=== PATIENT | male | born 1960 | race Caucasian/White ===

== ENCOUNTER 2016-05-30 17:31 | Observation (INO) | payer BC ==
[2016-05-30] MEDS ORDERED: Aspirin Low Dose CHEW TAB* 81 MG PO ONE (18:08)
[2016-05-30 18:49] LABS: Hematocrit 43 % (42-52); Hemoglobin 14.4 g/dl (14.0-18.0); Mean Corpuscular HGB Conc 34 g/dl (31-36); Mean Corpuscular Hemoglobin 32 pg (27-31); Mean Corpuscular Volume 95 fL (80-94); Mean Platelet Volume 8 um3 (7.4-10.4); Red Cell Distribution Width 13 % (10.5-15); White Blood Count 12.8 10^3/ul (3.5-10.8)
--- NOTE | 2016-05-30 18:56 | RAD ---
INDICATION: Chest pain COMPARISON: None TECHNIQUE: An AP portable view obtained at 1825 hours is submitted. FINDINGS: Bones/Soft Tissues: There are no acute bony findings. Cardiomediastinal: The cardiomediastinal silhouette is normal. Lungs: There are no infiltrates. Pleura: There are no pleural effusions. Other: None IMPRESSION: NORMAL CHEST
[2016-05-30 19:09] LABS: Troponin I 0.03 ng/mL (<0.04)
[2016-05-30 19:11] LABS: Albumin 4.3 g/dL (3.2-5.2); BUN/Creatinine Ratio 17.6 (8-20); Calcium 9.9 mg/dL (8.6-10.3); EGFR African American 110.4 (>60); EGFR Non-African American 85.9 (>60); Globulin 3.2 g/dL (2-4); Potassium 3.7 mmol/L (3.5-5.0); Total Bilirubin 0.3 mg/dL (0.2-1.0); Total Protein 7.5 g/dL (6.4-8.9)
[2016-05-30] MEDS ORDERED: Nitroglycerin TAB 0.4 MG* 0.4 MG TAB SL ONE (19:37)
[2016-05-30] MEDS: Heparin VIAL(*) 5000 UNITS/ML VIAL (FIVE THOUSAND) SUBCUT SCH (22:15)
[2016-05-31 03:22] VITALS: BP 134/80
[2016-05-31] MEDS: Heparin VIAL(*) 5000 UNITS/ML VIAL (FIVE THOUSAND) SUBCUT SCH (05:24)
--- NOTE | 2016-05-31 05:53 | HP ---
HISTORY AND PHYSICAL: DATE OF ADMISSION: 05/30/16 PRIMARY CARE PHYSICIAN: Dr. Tate Vuong. CHIEF COMPLAINT: Left arm pain. HISTORY OF PRESENT ILLNESS: The patient is a 55-year-old gentleman who said yesterday he was hitting golf balls at an indoor facility and was doing well. However, then he started feeling sweaty profoundly and he was shaking. He then drank some Gatorade and he felt better. He never had any pain, palpitations, or shortness of breath then. Today, he was lifting weights and doing circuit training at the gym and did well without any problems. However, sometime afterwards, he started feeling pain in his left arm that was from his biceps to his wrist. It did not last that long. He could not tell me how severe it was in terms of numbers. He did not have any chest pain. He had no shortness of breath, no palpitations. No nausea or vomiting. He is currently pain free. PAST MEDICAL HISTORY: Significant for obstructive sleep apnea and GERD. MEDICATIONS: Include: 1. Probiotic 1 capsule daily. 2. AcipHex 20 mg daily. ALLERGIES: He has no known drug allergies. FAMILY HISTORY: Mother at 74 of colon cancer. Father is alive, has hypertension, AFib, and diabetes. SOCIAL HISTORY: No tobacco, quit 12 years ago. Occasional alcohol, no recreational drug use. 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 He is . He has no children. His , Randee Diaz, is his healthcare proxy. REVIEW OF SYSTEMS: A 14-point review of systems was completed with the patient. All pertinent positives and negatives are in the history of present illness, otherwise is negative. PHYSICAL EXAMINATION GENERAL: Pleasant gentleman lying in bed in no acute distress. VITAL SIGNS: Temperature 98.2 degrees, heart rate 71 beats minutes, respiratory rate 20 breaths per minute, pulse ox 98%, blood pressure 150/85. HEENT: Normocephalic, atraumatic. Pupils equal, round, and reactive to light. Moist mucous membranes. NECK: Supple. No JVD, bruits palpable thyroid, or lymphadenopathy. CHEST: Clear to auscultation and percussion bilaterally. CARDIOVASCULAR: S1, S2 appreciated. Regular rate and rhythm. No murmurs, gallops, or rubs. ABDOMEN: Positive bowel sounds in all 4 quadrants. Soft, nontender, nondistended. No hepatosplenomegaly. EXTREMITIES: No cyanosis, clubbing, or edema. +2 peripheral pulses bilaterally. NEURO: Alert and oriented x3. Moves all extremities. SKIN: No rashes or abnormalities. DIAGNOSTIC STUDIES/LAB DATA: Hemoglobin 14.4, hematocrit 43, platelets 264. Sodium 137, potassium 3.7, chloride 103, CO2 24, BUN 16, glucose 109. Troponin is 0.03. Chest x-ray was interpreted by Radiology as normal chest. EKG showed normal sinus rhythm at 69 beats minute, left axis deviation, left anterior hemiblock. No acute ST-T wave changes. ASSESSMENT AND PLAN: 1. Left arm pain. The patient says not really experiencing chest pain and I thought this is anginal equivalent, but he is very concerned. He has not had a stress test. I will rule him out for a myocardial infarction with serial troponins. He just had a lipid profile obtained at his primary care doctor's office and it was probably unremarkable. This was in the last 2 weeks. If his troponins are negative, I will get a nuclear stress. If this is unremarkable, we would like him go home tomorrow. 2. Gastroesophageal reflux disease, stable. Continue PPI. 3. High blood pressure. We will monitor while here, may benefit from antihypertensive. 4. FEN. NPO after midnight. 5. DVT prophylaxis. Heparin subcu. 6. The patient is a full code. TIME SPENT: Over 75 minutes was spent on this H and P and more than 40 minutes was spent in direct onlb-po-sejo contact with the patient in evaluation, physical exam, and counseling and coordination of care. CC: Dr. Tate Vuong * [id number]/[facility] #: [id number] MARIA D
[2016-05-31] MEDS ORDERED: PROBIOTIC PRODUCT PO SCH (09:00)
[2016-05-31] MEDS ORDERED: Omeprazole CAP* 20 MG PO SCH (09:00)
--- NOTE | 2016-05-31 10:50 | RAD ---
Edited for charges. INDICATION: Chest and left upper extremity pain COMPARISON: Chest x-ray from the previous day TECHNIQUE: SPECT imaging was performed. Rest images were acquired following the intravenous injection of 10.7 millicuries of technetium 99m tetrofosmin at 0645 hours. Stress images were acquired following the intravenous administration of 25.5 millicuries of technetium 99m tetrofosmin at 0854 hours. FINDINGS: There are no defects of the stress-induced or fixed nature. The cardiac chamber size is normal. There are no wall motion abnormalities. The ejection fraction is calculated at 63% on stress imaging. IMPRESSION: No scintigraphic evidence of ischemia or infarction. ASSESSMENT: Low risk MTDD
--- NOTE | 2016-05-31 12:46 | DCNOTE ---
Patient seen this afternoon. No recurrence of pain. No SOB, feels well, anxious to leave. On exam, obese, middle-aged M, laying in bed in NAD, RRR, s1 and s2 present, no m/g/r, abd soft, NTND, BS+, no LE edema Stress test low risk. D/C home, PCP f/u
[2016-05-31] MEDS ORDERED: Lactobacillus Acidophilu (GG)* 1 CAP CAP PO SCH (13:00)
--- NOTE | 2016-06-01 04:38 | DS ---
DISCHARGE SUMMARY: DATE OF ADMISSION: 05/30/16 DATE OF DISCHARGE: 05/31/16 PRINCIPAL DISCHARGE DIAGNOSIS: Chest pain. SECONDARY DIAGNOSES: 1. Obstructive sleep apnea. 2. Gastroesophageal reflux disease. DISCHARGE MEDICATION REGIMEN: Aciphex 20 mg by mouth daily. STUDIES DONE DURING THE HOSPITALIZATION: Chest x-ray, impression: Normal chest x- ray. Nuclear cardiac stress test, impression: No scintigraphic evidence of ischemia or infarction. Asse ssment: Low risk. HPI AND HOSPITAL SUMMARY: Please see the full history and physical by Dr. Magdiel Pompa for full deta ils. Briefly, Mr. Garcia is a 55-year-old male with a past medical history as above who presented to the hospital with some left-sided arm pain and was felt that this could possibly be an anginal e quivalent. The patient was monitored and his troponins were trended, which remained negative. He h ad no events on telemetry. He underwent a nuclear cardiac stress test that was negative. His pain r esolved shortly after coming to the hospital and did not recur and it was felt this was probably mus culoskeletal due to his recent weight lifting. No medication changes will be made. The patient gerry uld follow up with his PCP as an outpatient. TIME SPENT: Total time spent on this discharge is 35 minutes. This is the summary of hospitalization, please see the full medical records for further details. [id number]/[facility] #: [id number]
--- NOTE | 2016-06-15 20:36 | ED ---
Diane Mccall Anna, scribed for Hossein Ford MD on 05/30/16 at 1820 . Upper Extremity Pain - HPI Summary HPI Summary: Patient is a 55 y/o male coming to [facility] presenting with left shoulder pain that began today when he was driving home from work. He reports that he did do some heavy lifting as part of his normal workout today. The pain radiates down his left arm. He describes the severity of the pain as 5/10. He reports similar pain yesterday that was accompanied by diaphoresis at that time. The diaphoresis was alleviated by drinking Gatorade. Yesterday he played golf at lunchtime. He went to his PCP today, who recommended he come to the ED. He reports bloodwork done by his PCP was normal. He reports feeling very thirsty and somewhat anxious. The arm pain has since resolved and is not reproducible. He reports a zing in his chest five minutes ago that lasted a second but no previous chest pain. Denies coughing, emesis, diarrhea. He has been on a low carb diet since 1.5 months ago. He takes Esphyx for GERD. Drinks socially. No FHx heart problems. - History of Current Complaint Chief Complaint: EDChestPainROMI Stated Complaint: PAIN LT SHOULDER Time Seen by Provider: 05/30/16 18:08 Hx Obtained From: Patient - Allergies/Home Medications Allergies/Adverse Reactions: Allergies Allergy/AdvReac Type Severity Reaction Status Date / Time Amoxicillin [From Augmentin] Allergy Palpitation Verified 06/03/14 10:06 s Clavulanic Acid Allergy Palpitation Verified 06/03/14 10:06 [From Augmentin] s Home Medications: Home Medications Rabeprazole (NF) [Aciphex (NF)] 20 mg PO DAILY 05/30/16 [History Confirmed 05/30] PMH/Surg Hx/FS Hx/Imm Hx Endocrine/Hematology History: Denies: Hx Diabetes, Hx Thyroid Disease Cardiovascular History: Denies: Hx Hypertension Respiratory History: Denies: Hx Asthma, Hx Chronic Obstructive Pulmonary Disease (COPD) GI History: Denies: Hx Ulcer - Surgical History Surgery Procedure, Year, and Place: appendectomy 2002 Infectious Disease History: Yes Infectious Disease History: Denies: Hx Hepatitis, Hx Human Immunodeficiency Virus (HIV), Traveled Outside the [place] in Last 30 Days - Family History Known Family History: Negative: Cardiac Disease - Social History Occupation: Employed Full-time Lives: With Family Alcohol Use: Occasionally Substance Use Type: Reports: None Review of Systems Positive: Other - thirsty Negative: Cough Negative: Abdominal Pain, Vomiting, Diarrhea, Nausea Negative: dysuria, hematuria Positive: Arthralgia, Myalgia. Negative: Edema Negative: Rash Neurological: Other - Denies dizziness Positive: Anxious All Other Systems Reviewed And Are Negative: Yes Physical Exam - Summary Physical Exam Summary: Constitutional: Well-developed, Well-nourished, Alert. (-) Distressed Skin: Warm, Dry HENT: Normocephalic; Atraumatic Eyes: Conjunctiva normal Neck: Musculoskeletal ROM normal neck. (-) JVD, (-) Stridor, (-) Tracheal deviation Cardio: Rhythm regular, rate normal, Heart sounds normal; Intact distal pulses; The pedal pulses are 2+ and symmetric. Radial pulses are 2+ and symmetric. ~(-) Murmur Pulmonary/Chest wall: Effort normal. (-) Respiratory distress, (-) Wheezes, (-) Rales Abd: Soft, (-) Tenderness, ~(-) Distension, (-) Guarding, (-) Rebound Musculoskeletal: (-) Edema Lymph: (-) Cervical adenopathy Neuro: Alert, Oriented x3 Psych: Mood and affect Normal Triage Information Reviewed: Yes Vital Signs On Initial Exam: Initial Vitals Temp Pulse Resp BP Pulse Ox 98.3 F 71 20 150/85 98 05/30/16 17:36 05/30/16 17:36 05/30/16 17:36 05/30/16 17:36 05/30/16 17:36 Vital Signs Reviewed: Yes Diagnostics - Vital Signs Vital Signs Temp Pulse Resp BP Pulse Ox 05/30/16 17:36 98.3 F 71 20 150/85 98 - Laboratory Result Diagrams: 05/30/16 18:35 05/30/16 18:35 Lab Statement: Any lab studies that have been ordered have been reviewed, and results considered in the medical decision making process. - Radiology CXR Xray Interpretation: No Acute Changes Radiology Interpretation Completed By: Radiologist - EKG 1744 Cardiac Rate: NL - 69 bpm EKG Rhythm: Sinus Rhythm Ectopy: None EKG Interpretation: No STEMI Re-Evaluation - Re-Evaluation First Eval Re-Evaluation Time: 19:25 Change: Worse Comment: Patient reports current 2/10 left arm pain. Will order Nitroglycerin. Discussed results and plan of care with patient. Patient and family agree with plan. Course/Dx - Course Assessment/Plan: Patient is a 55 y/o male coming to [facility] presenting with left shoulder pain that began today when he was driving home from work. He reports that he did do some heavy lifting as part of his normal workout today. The pain radiates down his left arm. He describes the severity of the pain as 5/10. He reports similar pain yesterday that was accompanied by diaphoresis at that time. The diaphoresis was alleviated by drinking Gatorade. Yesterday he played golf at lunchtime. He went to his PCP today, who recommended he come to the ED. He reports bloodwork done by his PCP was normal. He reports feeling very thirsty and somewhat anxious. The arm pain has since resolved and is not reproducible. He reports a zing in his chest five minutes ago that lasted a second but no previous chest pain. Denies coughing, emesis, diarrhea. He has been on a low carb diet since 1.5 months ago. He takes Esphyx for GERD. Drinks socially. No FHx heart problems. Labs reveal WBC level of 12.8. EKG reveals NSR at 69 bpm. CXR reveals no acute disease. Discussed with Quan Reagan ( hospitalist) at 192. Accepts patient for admission. - Diagnoses Provider Diagnoses: Chest pain, unspecified - Physician Notifications Discussed Care Of Patient With: Quan Reagan (hospitalist) at 1921. Accepts patient for admission. Discharge - Discharge Plan Condition: Stable Disposition: ADMITTED TO [facility] Referrals: Tate Vuong MD [Primary Care Provider] - The documentation as recorded by the Diane watt Anna accurately reflects the service I personally performed and the decisions made by , Hossein Ford MD.
== END 2016-05-31 14:45 | disposition home or self-care (01) ==
LOC: ED 17:31 → MEDTELE 19:43
PROVIDERS: ADMIT Internal Medicine; ATTEND Hospitalist
DX: R07.9 Chest pain, unspecified (principal); M79.602 Pain in left arm; G47.33 Obstructive sleep apnea (adult) (pediatric); K21.9 Gastro-esophageal reflux disease without esophagitis; R03.0 Elevated blood-pressure reading, without diagnosis of hypertension; R00.1 Bradycardia, unspecified; Z79.899 Other long term (current) drug therapy; Z88.0 Allergy status to penicillin; Z88.8 Allergy status to other drugs, medicaments and biological substances; Z87.891 Personal history of nicotine dependence; I51.7 Cardiomegaly
CPT/HCPCS: 36415; 71010; 78452; 80053; 83605; 84484; 85025; 93005; 93017; 96372; 99284; A9270-GY; A9502; G0378; J1644

== ENCOUNTER 2016-07-20 11:25 | Emergency (ER) | payer BC ==
[2016-07-20 11:40] VITALS: BP 139/72
--- NOTE | 2016-07-20 12:12 | UC ---
Truncal Trauma HPI - HPI Summary HPI Summary: patient slipped on ice landing on right side of trunk. pain with movement, no respiratory distress - History Of Current Complaint Chief Complaint: UCBackPain Stated Complaint: RIB AND BACK INJURY Time Seen by Provider: 07/20/16 12:05 Hx Obtained From: Patient Onset/Duration: Sudden Onset, Lasting Days Onset Of Pain: Immediate Severity Initially: Moderate Severity Currently: Moderate Mechanism Of Injury: Direct Blow, Fall From A Standing Position Aggravating Factor(s): Movement, Deep Breathing Alleviating factor(s): Nothing Associated Signs And Symptoms: Positive: Negative - Allergies/Home Medications Allergies/Adverse Reactions: Allergies Allergy/AdvReac Type Severity Reaction Status Date / Time Clavulanic Acid Allergy Palpitation Verified 07/20/16 11:33 [From Augmentin] s Amoxicillin [From Augmentin] AdvReac Intermediate Palpitation Verified 07/20/16 11:33 s PMH/Surg Hx/FS Hx/Imm Hx Previously Healthy: Yes Endocrine History Of: Denies: Diabetes, Thyroid Disease Cardiovascular History Of: Denies: Cardiac Disorders, Hypertension, Myocardial Infarction Respiratory History Of: Denies: COPD, Asthma GI/ History Of: Denies: Ulcer - Surgical History Surgical History: Yes Surgery Procedure, Year, and Place: appendectomy 2001 - Family History Known Family History: Negative: Cardiac Disease - Social History Alcohol Use: Occasionally Substance Use Type: None Smoking Status (MU): Former Smoker Have You Smoked in the Last Year: No - Immunization History Most Recent Influenza Vaccination: 2015 Most Recent Tetanus Shot: 04/04/13 Most Recent Pneumonia Vaccination: N/A Review of Systems Constitutional: Negative Skin: Negative Eyes: Negative ENT: Negative Respiratory: Negative Cardiovascular: Negative Gastrointestinal: Negative Genitourinary: Negative Motor: Negative Musculoskeletal: Arthralgia, Myalgia Neurological: Negative Psychological: Negative All Other Systems Reviewed And Are Negative: Yes Physical Exam Triage Information Reviewed: Yes Appearance: Well-Nourished, Ill-Appearing, Pain Distress Vital Signs: Initial Vital Signs Temp 96.8 F 07/20/16 11:33 Pulse 66 07/20/16 11:33 Resp 18 07/20/16 11:33 BP 139/72 07/20/16 11:33 Pulse Ox 98 07/20/16 11:33 Vital Signs Reviewed: Yes Eye Exam: Normal Eyes: Positive: Conjunctiva Clear ENT Exam: Normal ENT: Positive: Normal ENT inspection, Hearing grossly normal, Pharynx normal, TMs normal Dental Exam: Normal Neck exam: Normal Neck: Positive: Supple, Nontender, No Lymphadenopathy Respiratory Exam: Normal Respiratory: Positive: Chest non-tender, Lungs clear, Normal breath sounds Cardiovascular Exam: Normal Cardiovascular: Positive: RRR, No Murmur, Pulses Normal Abdominal Exam: Normal Abdomen Description: Positive: Nontender, No Organomegaly, Soft Musculoskeletal: Positive: Strength Intact, ROM Intact, Edema @ - under the inferior angle of the scapula Neurological Exam: Normal Neurological: Positive: Alert, Muscle Tone Normal Psychological Exam: Normal Skin Exam: Normal Truncal Trauma Course/Dx - Course Course Of Treatment: hx obtained, exam performed, meds reviewed, xray obtained. patient had taken motrin prior to arrival - Differential Dx/Diagnosis Differential Diagnosis/HQI/PQRI: Chest Wall Contusion, Rib Fracture, Thoracic Provider Diagnoses: rib contusion Discharge - Discharge Plan Condition: Stable Disposition: HOME Patient Education Materials: Rib Contusion (ED) Referrals: Tate Vuong MD [Primary Care Provider] - Additional Instructions: 1. Heat, rest and ibuprofen 2. Take deep breaths often throughout the day 3. If you develop a cough or become short of breath follow up wit your provider.
--- NOTE | 2016-07-20 12:33 | RAD ---
INDICATION: Fall. Right rib pain COMPARISON: Chest x-ray May 30, 2016 TECHNIQUE: Multiple views of the ribs were obtained. FINDINGS: Bones: There is no evidence of acute rib fracture. LUNGS: The lungs are clear. There is no pneumothorax. Pleural spaces: There is no evidence of hemothorax. Other: None IMPRESSION: NO ACUTE RIB FRACTURE
== END 2016-07-20 12:52 | disposition home or self-care (01) ==
LOC: UCEAST 11:25
DX: S20.211A Contusion of right front wall of thorax, initial encounter (principal); W00.0XXA Fall on same level due to ice and snow, initial encounter; Y92.9 Unspecified place or not applicable; Z88.0 Allergy status to penicillin; Z87.891 Personal history of nicotine dependence
CPT/HCPCS: 99211; G0463

== ENCOUNTER 2016-07-21 09:45 | Emergency (ER) | payer BC ==
[2016-07-21 10:02] VITALS: BP 135/93
--- NOTE | 2016-07-21 10:32 | UC ---
Truncal Trauma HPI - HPI Summary HPI Summary: SLIPPED ON ICE YESTERDAY MORNING AND LANDED DIRECTLY ON RIGHT SIDE. PAIN WITH MOVEMENT, COUGHING AND DEEP BREATHS. CAME HERE YESTERDAY FOR EVAL AND HAD NEGATIVE XRAY. LAST NIGHT HE TWISTED HIS BODY AT [employer] AND HEARD A POP. PAIN WAS MUCH WORSE AFTER THAT. HAD A HARD TIME SLEEPING LAST NIGHT. PAIN WRAPS AROUND ENTIRE RIGHT SIDE OF TRUNK. - History Of Current Complaint Chief Complaint: UCBackPain Stated Complaint: POSSIBLE BROKEN RIBS Time Seen by Provider: 07/21/16 10:06 Hx Obtained From: Patient Onset/Duration: Sudden Onset, Lasting Days - 1 DAY, Still Present Onset Of Pain: Immediate Severity Initially: Moderate Severity Currently: Severe Pain Intensity: 10 - 10/10 WHEN HE MOVES Pain Scale Used: 0-10 Numeric Mechanism Of Injury: Fall From A Standing Position Aggravating Factor(s): Movement, Deep Breathing, Cough Alleviating factor(s): Rest Associated Signs And Symptoms: Positive: Negative - Allergies/Home Medications Allergies/Adverse Reactions: Allergies Allergy/AdvReac Type Severity Reaction Status Date / Time Clavulanic Acid Allergy Palpitation Verified 07/20/16 11:33 [From Augmentin] s Amoxicillin [From Augmentin] AdvReac Intermediate Palpitation Verified 07/20/16 11:33 s PMH/Surg Hx/FS Hx/Imm Hx Endocrine History Of: Denies: Diabetes, Thyroid Disease Cardiovascular History Of: Denies: Cardiac Disorders, Hypertension, Myocardial Infarction Respiratory History Of: Denies: COPD, Asthma GI/ History Of: Reports: Gastroesophageal Reflux Denies: Ulcer - Surgical History Surgical History: Yes Surgery Procedure, Year, and Place: appendectomy 2001 - Family History Known Family History: Negative: Cardiac Disease - Social History Alcohol Use: Occasionally Substance Use Type: None Smoking Status (MU): Former Smoker Have You Smoked in the Last Year: No - Immunization History Most Recent Influenza Vaccination: 2016 Most Recent Tetanus Shot: 04/04/13 Most Recent Pneumonia Vaccination: N/A Review of Systems Constitutional: Negative Skin: Negative Respiratory: Negative Cardiovascular: Negative Gastrointestinal: Negative Musculoskeletal: Decreased ROM, Myalgia All Other Systems Reviewed And Are Negative: Yes Physical Exam Triage Information Reviewed: Yes Appearance: Well-Appearing, Well-Nourished, Pain Distress - MODERATE PAIN DISTRESS WITH MOVEMENT Vital Signs: Initial Vital Signs Temp 97.7 F 07/21/16 09:57 Pulse 68 07/21/16 09:57 Resp 16 07/21/16 09:57 BP 135/93 07/21/16 09:57 Pulse Ox 99 07/21/16 09:57 Vital Signs Reviewed: Yes Eyes: Positive: Conjunctiva Clear ENT: Positive: Hearing grossly normal Neck: Positive: Supple Respiratory: Positive: No respiratory distress, No accessory muscle use Cardiovascular: Positive: Pulses Normal Abdomen Description: Positive: Soft Musculoskeletal: Positive: No Edema, ROM Limited @ - TRUNK, Other: - TTP DIFFUSELY OVER RIGHT SIDE OF TRUNK. NO POINT TENDERNESS, BRUISING OR SWELLING Neurological: Positive: Alert Psychological: Positive: Age Appropriate Behavior Skin: Negative: rashes Truncal Trauma Course/Dx - Course Course Of Treatment: PT DECLINES REPEAT XRAY. ASKING FOR PAIN RELIEF. - Differential Dx/Diagnosis Provider Diagnoses: RIGHT RIB CONTUSION/MUSCLE STRAIN Discharge - Discharge Plan Condition: Stable Disposition: HOME Prescriptions: Cyclobenzaprine TAB* [Flexeril TAB*] 10 mg PO BID PRN #30 tab PRN Reason: Pain Hydrocodone-Acetaminophen [Lorcet 5-325 mg] 1 tab PO QID PRN #20 tab MDD 4 PRN Reason: Pain Patient Education Materials: Muscle Strain (ED), Rib Contusion (ED) Referrals: Tate Vuong MD [Primary Care Provider] - Additional Instructions: BE SURE TO GO THROUGH SLOW RANGE OF MOTION AND STRETCHING EXERCISES DAILY YOU ARE ABLE TO PREVENT STIFFENING UP AND MAKING THE DISCOMFORT WORSE. TAKE DEEP BREATHS DAILY TO KEEP YOUR LUNGS EXPANDING. SEEK FOLLOW-UP IF YOU ARE NOT IMPROVING EXPECTED.
[2016-07-21] MEDS ORDERED: Nitroglycerin TAB 0.4 MG* 0.4 MG TAB ONE (12:21)
== END 2016-07-21 10:28 | disposition home or self-care (01) ==
LOC: UCEAST 09:45
DX: S20.219A Contusion of unspecified front wall of thorax, initial encounter (principal); T14.8 Other injury of unspecified body region; W00.0XXA Fall on same level due to ice and snow, initial encounter; K21.9 Gastro-esophageal reflux disease without esophagitis; Z87.891 Personal history of nicotine dependence; Z88.3 Allergy status to other anti-infective agents
CPT/HCPCS: 99212; A9270-GY; G0463

== ENCOUNTER 2017-03-20 05:51 | Emergency (ER) | payer BC ==
[2017-03-20 06:01] VITALS: BP 172/91
[2017-03-20] MEDS ORDERED: Oxymetazoline 0.05% NASAL SPR* 15 ML BTL ONE (06:11)
[2017-03-20 06:41] LABS: Hematocrit 38 % (42-52); Hemoglobin 12.9 g/dl (14.0-18.0); Mean Corpuscular HGB Conc 35 g/dl (31-36); Mean Corpuscular Hemoglobin 32 pg (27-31); Mean Corpuscular Volume 93 fL (80-94); Mean Platelet Volume 8 um3 (7.4-10.4); Red Blood Count 4.03 10^6/ul (4.0-5.4); Red Cell Distribution Width 13 % (10.5-15); White Blood Count 13.6 10^3/ul (3.5-10.8)
--- NOTE | 2017-03-20 07:38 | ED ---
Li Mccall Alfonso, scribed for Yoni Alejandra MD on 03/20/17 at 0620 . Complex/Multi-Sys Presentation - HPI Summary HPI Summary: This patient is a 56 year old M presenting to [facility] with a chief complaint of right nare epistaxis since 0230 today. He is on an anticoagulant pill and ASA s/ p a recent stent placement. The patient rates the pain 0/10 in severity. Symptoms aggravated by nothing. Symptoms alleviated by nothing. Patient denies post nasal drip. - History Of Current Complaint Chief Complaint: EDEpistaxis Time Seen by Provider: 03/20/17 06:04 Hx Obtained From: Patient Onset/Duration: Sudden Onset, Lasting Hours, Still Present Timing: Constant Aggravating Factor(s): nothing Alleviating Factor(s): nothing Associated Signs And Symptoms: Positive: Other - Patient denies post nasal drip. - Allergies/Home Medications Allergies/Adverse Reactions: Allergies Allergy/AdvReac Type Severity Reaction Status Date / Time Clavulanic Acid Allergy Palpitation Verified 07/20/16 11:33 [From Augmentin] s Amoxicillin [From Augmentin] AdvReac Intermediate Palpitation Verified 07/20/16 11:33 s PMH/Surg Hx/FS Hx/Imm Hx Endocrine/Hematology History: Denies: Hx Diabetes, Hx Thyroid Disease Cardiovascular History: Reports: Hx Angina Denies: Hx Coronary Artery Disease, Hx Hypercholesterolemia, Hx Hypertension , Hx Myocardial Infarction, Hx Valvular Heart Disease Respiratory History: Reports: Hx Sleep Apnea - uses CPAP @ night @ home Denies: Hx Asthma, Hx Chronic Obstructive Pulmonary Disease (COPD) GI History: Denies: Hx Ulcer Sensory History: Reports: Hx Cataracts Opthamlomology History: Reports: Hx Cataracts EENT History: Denies: Hx Deafness Psychiatric History: Reports: Hx Panic Disorder - Surgical History Surgery Procedure, Year, and Place: appendectomy 2001 - Immunization History Date of Tetanus Vaccine: utd Date of Influenza Vaccine: fall 2015 Infectious Disease History: No Infectious Disease History: Denies: Hx Clostridium Difficile, Hx Hepatitis, Hx Human Immunodeficiency Virus (HIV), Hx of Known/Suspected MRSA, Hx Shingles, Hx Tuberculosis, Hx Known/ Suspected VRE, Hx Known/Suspected VRSA, History Other Infectious Disease, Traveled Outside the [place] in Last 30 Days - Family History Known Family History: Negative: Cardiac Disease - Social History Alcohol Use: Occasionally Hx Substance Use: No Substance Use Type: Reports: None Hx Tobacco Use: Yes Smoking Status (MU): Former Smoker Have You Smoked in the Last Year: No Review of Systems Negative: Fever Positive: Epistaxis - R, Other - Negative post nasal drip. All Other Systems Reviewed And Are Negative: Yes Physical Exam - Summary Physical Exam Summary: Appearance: Well-appearing, Well-nourished Skin: Warm Eyes: Normal ENT: Right nare epistaxis Neck: Supple, nontender Respiratory: Clear to auscultation Cardiovascular: Normal Abdomen: Soft, nontender Bowel: Present Musculoskeletal: Normal, Strength/ROM Intact Neurological: Normal, A&Ox3 Psychiatric: Normal Triage Information Reviewed: Yes Vital Signs On Initial Exam: Initial Vitals Temp Pulse Resp BP Pulse Ox 96 F 72 18 172/91 98 03/20/17 05:54 03/20/17 05:54 03/20/17 05:54 03/20/17 05:54 03/20/17 05:54 Vital Signs Reviewed: Yes - [place] Coma Scale Coma Scale Total: 15 Diagnostics - Vital Signs Vital Signs Temp Pulse Resp BP Pulse Ox 03/20/17 05:54 96 F 72 18 172/91 98 - Laboratory Lab Results: Lab Results 03/20/17 03/20/17 Range/Units 06:21 06:21 WBC 13.6 H (3.5-10.8) 10^3/ul RBC 4.03 (4.0-5.4) 10^6/ul Hgb 12.9 L (14.0-18.0) g/dl Hct 38 L (42-52) % MCV 93 (80-94) fL MCH 32 H (27-31) pg MCHC 35 (31-36) g/dl RDW 13 (10.5-15) % Plt Count 248 (150-450) 10^3/ul MPV 8 (7.4-10.4) um3 Neut % (Auto) 77.4 (38-83) % Lymph % (Auto) 15.4 L (25-47) % [place] % (Auto) 5.0 (1-9) % Eos % (Auto) 1.5 (0-6) % Baso % (Auto) 0.7 (0-2) % Absolute Neuts (auto) 10.5 H (1.5-7.7) 10^3/ul Absolute Lymphs (auto) 2.1 (1.0-4.8) 10^3/ul Absolute Monos (auto) 0.7 (0-0.8) 10^3/ul Absolute Eos (auto) 0.2 (0-0.6) 10^3/ul Absolute Basos (auto) 0.1 (0-0.2) 10^3/ul Absolute Nucleated RBC 0 10^3/ul Nucleated RBC % 0 INR (Anticoag Therapy) 1.04 H (0.77-1.02) APTT 31.9 (26.0-36.3) seconds Result Diagrams: 03/20/17 06:21 Lab Statement: Any lab studies that have been ordered have been reviewed, and results considered in the medical decision making process. Complex Multi-Symp Course/Dx Assessment/Plan: bleeding stopped on its own after pressure, instructed to fu with pmd, agrees to and understands dc instructions. labs wnl. - Diagnoses Provider Diagnoses: Epistaxis Discharge - Discharge Plan Condition: Improved Disposition: HOME Patient Education Materials: Nosebleed (ED) Referrals: Tate Vuong MD [Primary Care Provider] - Additional Instructions: PLEASE RETURN TO THE EMERGENCY ROOM IF YOU HAVE ANY WORSENING OR CONCERNING SYMPTOMS PLEASE MAKE AN APPOINTMENT FIRST THING IN THE MORNING TO BE SEEN BY YOUR PRIMARY CARE DOCTOR WITHIN 1 WEEK The documentation as recorded by the Li watt Alfonso accurately reflects the service I personally performed and the decisions made by me, Yoni Alejandra MD.
== END 2017-03-20 07:48 | disposition home or self-care (01) ==
LOC: ED 05:51
DX: R04.0 Epistaxis (principal); Z87.891 Personal history of nicotine dependence; G47.30 Sleep apnea, unspecified
CPT/HCPCS: 36415; 85025; 85610; 85730; 99282; A9270-GY

== ENCOUNTER 2017-04-17 12:24 | Emergency (ER) | payer BC ==
[2017-04-17 13:02] LABS: ABS Basophils 0.1 10^3/ul (0-0.2); ABS Eosinophils 0 10^3/ul (0-0.6); ABS Lymphocytes 1.8 10^3/ul (1.0-4.8); ABS Monocytes 0.9 10^3/ul (0-0.8); ABS Neutrophils 16.7 10^3/ul (1.5-7.7); ABS Nucleated RBC 0 10^3/ul; Eosinophil % 0.2 % (0-6); Hematocrit 46 % (42-52); Hemoglobin 15.9 g/dl (14.0-18.0); Lymphocyte % 9.1 % (25-47); Mean Corpuscular HGB Conc 34 g/dl (31-36); Mean Corpuscular Hemoglobin 32 pg (27-31); Mean Corpuscular Volume 93 fL (80-94); Mean Platelet Volume 8 um3 (7.4-10.4); Nucleated Red Blood Cells % 0.2; Platelet Count 314 10^3/ul (150-450); Red Blood Count 4.97 10^6/ul (4.0-5.4); Red Cell Distribution Width 13 % (10.5-15); White Blood Count 19.4 10^3/ul (3.5-10.8)
[2017-04-17] MEDS ORDERED: NS 0.9% 1000 ML* 1,000 ML IV ONE ×2 (13:08→14:06)
[2017-04-17] MEDS ORDERED: Ondansetron INJ* 2 MG/ML VIAL IV ONE (13:09)
[2017-04-17] MEDS ORDERED: Ketorolac INJ* 30 MG/ML 1 ML VIAL IV PUSH ONE (13:09)
[2017-04-17 13:24] LABS: EGFR Non-African American 75.9 (>60)
[2017-04-17] MEDS ORDERED: Ketorolac INJ* 15 MG/ML 1 ML VIAL ONE (13:33)
[2017-04-17 16:49] VITALS: BP 136/74
--- NOTE | 2017-04-17 16:53 | ED ---
Genet Mccall Abhishek, scribed for Mirtha Urias MD on 04/17/17 at 1314 . Abdominal Pain/Male - HPI Summary HPI Summary: This patient is a 56 year old M presenting to [facility] accompanied by with a chief complaint of abd pain since midnight. Pt states the onset of the pain was after eating dinner yesterday. The patient rates the pain 8/10 in severity. Symptoms aggravated by drinking. Symptoms alleviated by nothing. Patient reports diarrhea, dehydration, syncope, HARDING, and anxiety. Patient denies Ear ache , sore throat, neck pain, back pain, urinary symptoms, blurred vision, shortness of breath, melena, and depression. - History of Current Complaint Chief Complaint: EDAbdPain Stated Complaint: ABD PAIN/DIARRHEA Time Seen by Provider: 04/17/17 12:31 Hx Obtained From: Patient, Family/Cpr Ambulance Driver Onset/Duration: Sudden Onset, Lasting Hours - midnight 04/17/16, Still Present Timing: Constant Severity Initially: Severe Severity Currently: Severe Pain Intensity: 8 Pain Scale Used: 0-10 Numeric Character: Cramping Aggravating Factor(s): Nothing Alleviating Factor(s): Nothing Associated Signs And Symptoms: Positive: Diarrhea, Other - dehydration, syncope , HARDING, and anxiety. Negative: Back Pain, Urinary Symptoms - Allergies/Home Medications Allergies/Adverse Reactions: Allergies Allergy/AdvReac Type Severity Reaction Status Date / Time Clavulanic Acid Allergy Palpitation Verified 07/20/16 11:33 [From Augmentin] s Amoxicillin [From Augmentin] AdvReac Intermediate Palpitation Verified 07/20/16 11:33 s PMH/Surg Hx/FS Hx/Imm Hx Endocrine/Hematology History: Denies: Hx Diabetes, Hx Thyroid Disease Cardiovascular History: Reports: Hx Angina Denies: Hx Coronary Artery Disease, Hx Hypercholesterolemia, Hx Hypertension , Hx Myocardial Infarction, Hx Valvular Heart Disease Respiratory History: Reports: Hx Sleep Apnea - uses CPAP @ night @ home Denies: Hx Asthma, Hx Chronic Obstructive Pulmonary Disease (COPD) GI History: Denies: Hx Ulcer Sensory History: Reports: Hx Cataracts Denies: Hx Deafness Opthamlomology History: Reports: Hx Cataracts Psychiatric History: Reports: Hx Panic Disorder - Surgical History Surgery Procedure, Year, and Place: appendectomy 2001 - Immunization History Date of Tetanus Vaccine: utd Date of Influenza Vaccine: fall 2015 Infectious Disease History: No Infectious Disease History: Denies: Hx Clostridium Difficile, Hx Hepatitis, Hx Human Immunodeficiency Virus (HIV), Hx of Known/Suspected MRSA, Hx Shingles, Hx Tuberculosis, Hx Known/ Suspected VRE, Hx Known/Suspected VRSA, History Other Infectious Disease, Traveled Outside the [place] in Last 30 Days - Family History Known Family History: Positive: Hypertension, Diabetes, Other - colon cancer Negative: Cardiac Disease - Social History Alcohol Use: Occasionally Hx Substance Use: No Substance Use Type: Reports: None Hx Tobacco Use: Yes Smoking Status (MU): Former Smoker Have You Smoked in the Last Year: No Review of Systems Positive: Other - dehydration Negative: Blurred Vision ENT: Other - Negative neck pain Negative: Sore Throat, Ear Ache Negative: Shortness Of Breath Positive: Abdominal Pain, Diarrhea, Other - Negative melena Positive: no symptoms reported Musculoskeletal: Other - Negative back pain Positive: Headache, Syncope Positive: Anxious. Negative: Depressed All Other Systems Reviewed And Are Negative: No Physical Exam - Summary Physical Exam Summary: Appearance: Alert, conversive, nontoxic appearing Skin: Warm, dry, no mottling, no rashes, no contusions HEENT: EOMI, PERRL, Slightly dry mucous membranes Neck: No masses on the neck, supple Respiratory: Clear to auscultation, breath sounds present, no rales, no rhonchi , no wheezes Cardiovascular: RRR, pulses are symmetrical in both lower and upper extremities Abdomen: Soft, non-tender Bowel Sounds: Present Musculoskeletal: No CVA tenderness, no obvious deformity, moving all extremities in a grossly normal manner Neurological: A&Ox3, CN II-XII Intact, moving all extremities symmetrically Psychiatric: Normal affect and mood Triage Information Reviewed: Yes Vital Signs On Initial Exam: Initial Vitals Temp Pulse Resp BP Pulse Ox 98.4 F 88 18 127/79 98 04/17/17 12:25 04/17/17 12:25 04/17/17 12:25 04/17/17 12:25 04/17/17 12:25 Vital Signs Reviewed: Yes - [place] Coma Scale Coma Scale Total: 15 Diagnostics - Vital Signs Vital Signs Temp Pulse Resp BP Pulse Ox 04/17/17 12:39 67 98 04/17/17 12:37 117/72 04/17/17 12:25 98.4 F 88 18 127/79 98 - Laboratory Lab Results: Lab Results 04/17/17 Range/Units 12:44 WBC 19.4 H (3.5-10.8) 10^3/ul RBC 4.97 (4.0-5.4) 10^6/ul Hgb 15.9 (14.0-18.0) g/dl Hct 46 (42-52) % MCV 93 (80-94) fL MCH 32 H (27-31) pg MCHC 34 (31-36) g/dl RDW 13 (10.5-15) % Plt Count 314 (150-450) 10^3/ul MPV 8 (7.4-10.4) um3 Neut % (Auto) 85.9 H (38-83) % Lymph % (Auto) 9.1 L (25-47) % [place] % (Auto) 4.5 (1-9) % Eos % (Auto) 0.2 (0-6) % Baso % (Auto) 0.3 (0-2) % Absolute Neuts (auto) 16.7 H (1.5-7.7) 10^3/ul Absolute Lymphs (auto) 1.8 (1.0-4.8) 10^3/ul Absolute Monos (auto) 0.9 H (0-0.8) 10^3/ul Absolute Eos (auto) 0 (0-0.6) 10^3/ul Absolute Basos (auto) 0.1 (0-0.2) 10^3/ul Absolute Nucleated RBC 0 10^3/ul Nucleated RBC % 0.2 Result Diagrams: 04/17/17 12:44 04/17/17 12:44 Lab Statement: Any lab studies that have been ordered have been reviewed, and results considered in the medical decision making process. Re-Evaluation - Re-Evaluation 1406 Re-Evaluation Time: 14:06 Comment: pt is feeling better, and will be given a second liter of fluid. He has not given a stool sample. 1438 Re-Evaluation Time: 14:38 Comment: Patient was given another liter of fluid and we discussed disposition with patient. Patients arms was readjusted for better flow of fluids. Abdominal Pain Fem Course/Dx - Course Course Of Treatment: The patient was given 500 cc of fluid. During second reEval , patient was given another liter of fluid and we had to redjust his arm for proper flow. The patient will follow up with PCP at the intended date for his physical and regular check up. There will be repeat labs tomorow. Pt will be discharged home with a dx of leukocytosis, diarrhea, and dehydration. - Diagnoses Provider Diagnoses: Leukocytosis, Dehydration, Diarrhea Discharge - Discharge Plan Condition: Stable Disposition: HOME Patient Education Materials: Dehydration (ED), Acute Diarrhea (ED), Leukocytosis (ED) Referrals: Tate Vuong MD [Primary Care Provider] - Additional Instructions: Keep your appt for repeat labs tomorrow. your white blood cell count is elevated. this is probably due to your diarrhea. However, it is important to get repeat labs and follow up with your doctor. Keep your follow up appt with your doctor next Friday. Return if worse or any new symptoms. Take tylenol and motrin for pain. The documentation as recorded by the Genet watt Abhishek accurately reflects the service I personally performed and the decisions made by , Mirtha Urias MD.
== END 2017-04-17 16:16 | disposition home or self-care (01) ==
LOC: ED 12:24
DX: D72.829 Elevated white blood cell count, unspecified (principal); E86.0 Dehydration; R19.7 Diarrhea, unspecified; R55 Syncope and collapse; R51 Headache; Z87.891 Personal history of nicotine dependence
CPT/HCPCS: 36415; 80053; 83605; 83690; 85025; 96374; 96375; 99282; J1885; J2405

== ENCOUNTER 2017-06-10 10:02 | Emergency (ER) | payer BC ==
[2017-06-10 10:10] VITALS: BP 159/85
--- NOTE | 2017-06-10 10:51 | UC ---
Dizzy HPI HPI Summary: PT WITH SUDDEN ONSET OF DIZZINESS TODAY WHILE SITTING ON THE COUCH GETTING READY TO GO TO THE GYM. HAD SOME ASSOCIATED NAUSEA AND ONE EPISODE OF LOOSE STOOLS. HAD 2 STENTS PLACED 12/2016. PT STATES DIZZINESS AND NAUSEA ARE IMPROVED BUT STILL PRESENT. NOT WORSE WITH HEAD MOVEMENT OR CHANGE IN POSITION. DENIES CP , SOB, SWEATS. LAST CARDIOLOGY EVAL 3 WEEKS AGO WAS STABLE ACCORDING TO PT. SEES DR. VERÓNICA SIMPSON AT [facility]. - History Of Current Complaint Chief Complaint: UCDizziness Stated Complaint: DIZZY Time Seen by Provider: 06/10/17 10:13 Hx Obtained From: Patient Onset/Duration: Sudden Onset, Lasting Hours, Still Present - BUT BETTER Timing: Constant Severity Initially: Moderate Severity Currently: Mild Pain Intensity: 0 Pain Scale Used: 0-10 Numeric Character: Lightheaded, Dizzy Aggravating Factor(s): Nothing Alleviating Factor(s): Nothing Associated Signs And Symptoms: Positive: Nausea. Negative: Vomiting, Diaphoresis, Chest Pain, SOB, Unsteady Gait, Visual Changes - Allergies/Home Medications Allergies/Adverse Reactions: Allergies Allergy/AdvReac Type Severity Reaction Status Date / Time amoxicillin [From Augmentin] Allergy Intermediate Palpitation Verified 06/10/17 10:10 s clavulanic acid Allergy Intermediate Palpitation Verified 06/10/17 10:10 [From Augmentin] s Home Medications: Home Medications Amlodipine Besylate [Norvasc] 5 mg PO DAILY 06/10/17 [History Confirmed 06/10/17 ] Aspirin [Aspirin Childrens 81 MG] 1 tab PO DAILY 06/10/17 [History Confirmed ] Atorvastatin* [Lipitor 40 MG*] 1 tab PO DAILY 06/10/17 [History Confirmed ] Metoprolol Succinate 0.5 tab PO DAILY 06/10/17 [History Confirmed 06/10/17] Prasugrel HCl [Effient] 10 mg PO DAILY 06/10/17 [History Confirmed 06/10/17] PMH/Surg Hx/FS Hx/Imm Hx Cardiovascular History: Cardiac Disease - Surgical History Surgical History: Yes Surgery Procedure, Year, and Place: appendectomy 2001 - Family History Known Family History: Positive: Hypertension, Diabetes, Other - colon cancer Negative: Cardiac Disease - Social History Alcohol Use: Occasionally Substance Use Type: None Smoking Status (MU): Former Smoker Have You Smoked in the Last Year: No - Immunization History Most Recent Influenza Vaccination: 2016 Most Recent Tetanus Shot: 04/04/13 Most Recent Pneumonia Vaccination: N/A Review of Systems Constitutional: Negative Respiratory: Negative Cardiovascular: Negative Gastrointestinal: Diarrhea, Nausea Neurological: Other - DIZZY All Other Systems Reviewed And Are Negative: Yes Physical Exam Triage Information Reviewed: Yes Appearance: Well-Appearing, No Pain Distress, Well-Nourished Vital Signs: Initial Vital Signs Temp 97.7 F 06/10/17 10:07 Pulse 78 06/10/17 10:07 Resp 20 06/10/17 10:07 BP 159/85 06/10/17 10:07 Pulse Ox 98 06/10/17 10:07 Vital Signs Reviewed: Yes Eyes: Positive: Conjunctiva Clear ENT: Positive: Hearing grossly normal Neck: Positive: Supple Respiratory Exam: Normal Cardiovascular Exam: Normal Abdomen Description: Positive: Nontender, Soft. Negative: CVA Tenderness (R), CVA Tenderness (L), Distended, Guarding Musculoskeletal: Positive: No Edema Neurological: Positive: Alert, Other: - NO WORSENING OF DIZZINESS WITH HEAD MOVEMENT Psychological: Positive: Age Appropriate Behavior Skin: Negative: rashes Diagnostics - EKG Cardiac Rate: NL - 72BPM Cardiac Rhythm: Sinus: Normal Ectopy: None ST Segment: Normal Dizzy Course/Dx - Course Course Of Treatment: ADVISED ED TRANSFER GIVEN RECENT STENTING AND SUDDEN ONSET OF DIZZINESS/NAUSEA. PT DECLINES. I CALLED PT'S CLAY [facility]IS[facility] AT [facility] AND SPOKE TO NURSE. DR. SIMPSON WILL SEE PT TODAY AT 1PM. ADVISED TO GO DIRECTLY TO ER IF SX WORSEN IN THE MEANTIME. PT ADVISED THAT BY NOT SEEKING IMMEDIATE EVALUATION HE IS RISKING WORSENING OF HIS CONDITION THAT COULD POSE A THREAT TO LIFE, HEALTH AND MEDICAL SAFETY. - Differential Dx/Diagnosis Provider Diagnoses: DIZZINESS, NOS Discharge - Discharge Plan Condition: Stable Disposition: HOME Patient Education Materials: Dizziness (ED) Referrals: Tate Vuong MD [Primary Care Provider] - If Needed Additional Instructions: GIVEN YOUR SYMPTOMS I STRONGLY RECOMMEND YOU GO IMMEDIATELY TO THE [facility] ED FOR FURTHER EVALUATION. SINCE YOU HAVE DECLINED TO BE TRANSFERRED I SPOKE TO DR. SIMPSON'S OFFICE AND THEY WILL SEE YOU IN THE OFFICE TODAY AT 1PM. PLEASE HAVE SOMEONE ELSE DRIVE YOU. GO TO THE CLOSEST ER WITHOUT FAIL IF YOU DEVELOP WORSENING DIZZINESS/NAUSEA SHORTNESS OF BREATH, CHEST PAIN, SWEATS OR ANY OTHER CONCERNING SYMPTOMS. [facility]. THEIR NUMBER IS .
== END 2017-06-10 10:47 | disposition home or self-care (01) ==
LOC: UCEAST 10:02
DX: R42 Dizziness and giddiness (principal); R11.0 Nausea; R19.7 Diarrhea, unspecified; I25.10 Atherosclerotic heart disease of native coronary artery without angina pectoris; Z95.5 Presence of coronary angioplasty implant and graft; Z79.82 Long term (current) use of aspirin; Z88.1 Allergy status to other antibiotic agents; Z87.891 Personal history of nicotine dependence
CPT/HCPCS: 93005; 99212; G0463

== ENCOUNTER 2019-01-12 03:18 | Emergency (ER) | payer BC ==
--- NOTE | 2019-01-12 03:53 | ED ---
Dizziness - HPI Summary HPI Summary: Pt is a 58 y/o M presenting to the ED with a chief complaint of nausea and lightheadedness. He states he had an episode of dizziness, nausea, and diaphoresis. He denies CP or SOB at that time. He took 4 baby aspirin and had a bowel movement, then states his sx were mostly alleviated. He denies vomiting or diarrhea. Hx includes HTN, HLD, and MT 2 yrs ago w/ 2 stents placed. He was concerned because when he had his MT he had diaphoresis but states he also had severe SOB which he did not have today. Reports recent URI. - History Of Current Complaint Chief Complaint: EDChestPainROMI Stated Complaint: NAUSEA/SWEATY PER PT Time Seen by Provider: 01/12/19 03:34 Hx Obtained From: Patient Onset/Duration: Resolved, Suddenly Timing: Minutes Severity Initially: Moderate Severity Currently: Mild Character: Dizzy Aggravating Factor(s): Nothing Alleviating Factor(s): Nothing Associated Signs And Symptoms: Positive: Nausea, Diaphoresis. Negative: Vomiting, Diarrhea - Allergies/Home Medications Allergies/Adverse Reactions: Allergies Allergy/AdvReac Type Severity Reaction Status Date / Time amoxicillin [From Augmentin] Allergy Intermediate Palpitation Verified 01/12/19 03:31 s clavulanic acid Allergy Intermediate Palpitation Verified 01/12/19 03:31 [From Augmentin] s PMH/Surg Hx/FS Hx/Imm Hx Previously Healthy: Yes Endocrine/Hematology History: Denies: Hx Diabetes, Hx Thyroid Disease Cardiovascular History: Reports: Hx Angina, Hx Hypercholesterolemia, Hx Hypertension, Hx Myocardial Infarction Denies: Hx Coronary Artery Disease, Hx Valvular Heart Disease Respiratory History: Reports: Hx Sleep Apnea - uses CPAP @ night @ home Denies: Hx Asthma, Hx Chronic Obstructive Pulmonary Disease (COPD) GI History: Denies: Hx Ulcer Sensory History: Reports: Hx Cataracts Denies: Hx Deafness Opthamlomology History: Reports: Hx Cataracts Psychiatric History: Reports: Hx Panic Disorder - Surgical History Surgery Procedure, Year, and Place: appendectomy 2001, CARDIAC STENTS - Immunization History Date of Tetanus Vaccine: utd Date of Influenza Vaccine: fall 2015 Infectious Disease History: No Infectious Disease History: Reports: Traveled Outside the [place] in Last 30 Days Denies: Hx Clostridium Difficile, Hx Hepatitis, Hx Human Immunodeficiency Virus (HIV), Hx of Known/Suspected MRSA, Hx Shingles, Hx Tuberculosis, Hx Known/ Suspected VRE, Hx Known/Suspected VRSA, History Other Infectious Disease - Family History Known Family History: Positive: Hypertension, Diabetes, Other - colon cancer Negative: Cardiac Disease - Social History Alcohol Use: Occasionally Hx Substance Use: No Substance Use Type: Reports: None Hx Tobacco Use: Yes Smoking Status (MU): Former Smoker Have You Smoked in the Last Year: No Review of Systems Positive: Skin Diaphoresis Positive: Nausea. Negative: Vomiting, Diarrhea Neurological: Other - lightheaded All Other Systems Reviewed And Are Negative: Yes Physical Exam - Summary Physical Exam Summary: Constitutional: Well-developed, Well-nourished, Alert. (-) Distressed Skin: Warm, Dry HENT: Normocephalic; Atraumatic Eyes: Conjunctiva normal Neck: Musculoskeletal ROM normal neck. (-) JVD, (-) Stridor, (-) Nuchal rigidity Cardio: Rhythm regular, rate normal, Heart sounds normal; Intact distal pulses; Radial pulses are 2+ and symmetric. (-) Murmur Pulmonary/Chest wall: Effort normal. (-) Respiratory distress, (-) Wheezes, (-) Rales Abd: Soft, (-) tenderness, (-) Distension, (-) Guarding, (-) Rebound Musculoskeletal: (-) Edema Lymph: (-) Cervical adenopathy Neuro: Alert, Oriented x3 Psych: Mood and affect Normal Triage Information Reviewed: Yes Vital Signs On Initial Exam: Initial Vitals Temp Pulse Resp BP Pulse Ox 97.3 F 60 16 124/66 98 01/12/19 03:24 01/12/19 03:24 01/12/19 03:24 01/12/19 03:24 01/12/19 03:24 Vital Signs Reviewed: Yes Diagnostics - Vital Signs Vital Signs Temp Pulse Resp BP Pulse Ox 01/12/19 03:24 97.3 F 60 16 124/66 98 - Laboratory Result Diagrams: 01/12/19 03:48 01/12/19 03:48 Lab Statement: Any lab studies that have been ordered have been reviewed, and results considered in the medical decision making process. - Radiology CXR Radiology Interpretation Completed By: ED Physician Summary of Radiographic Findings: No acute process, pending official radiology report. - EKG 0329 Cardiac Rate: NL - 63bpm EKG Rhythm: Sinus Rhythm ST Segment: Non-Specific Ectopy: None Summary of EKG Findings: EKG at 0329 shows NSR at 63bpm with T-wave inversions in leads III and v1. No change from 06/10/17. Re-Evaluation - Re-Evaluation First Eval Comment: 4:30 first troponin negative. patient resting, awaiting repeat troponin Second Eval Comment: sec trop neg. Patient asymptomatic. Dizzy Course/Dx - Course Course Of Treatment: 58 year-old male with a history of a STEMI hypertension hyperlipidemia presents with diaphoresis, nausea that resolved prior to arrival. - Physical exam unremarkable, patient denying chest pain at this time. Well check labs including CBC, CMP and troponin as well as EKG given reported diaphoresis. Recent negative stress in August. - Diagnoses Provider Diagnoses: Lightheadedness, Diaphoresis Discharge ED - Sign-Out/Discharge Documenting (check all that apply): Patient Departure Patient Received Moderate/Deep Sedation with Procedure: No - Discharge Plan Condition: Stable Disposition: HOME Patient Education Materials: Lightheadedness (ED) Referrals: Tate Vuong MD [Primary Care Provider] - Additional Instructions: You were seen in the emergency department for lightheadedness and diaphoresis. Your EKG and heart enzymes were normal. If any studies were not completed at the time of discharge you will be called with the relevant results. Please follow up with your primary care doctor in next 2-3 days and return to emergency department for passing out, chest pain, trouble breathing or concerning symptoms. It was a pleasure taking care of you today. - Billing Disposition and Condition Condition: STABLE Disposition: Home - Attestation Statements Document Initiated by Krisibe: Yes Documenting Scribe: Maryse Cowan Provider For Whom Marcy is Documenting (Include Credential): Giovanna Louis MD. Scribe Attestation: Maryse Mccall scribed for Giovanna Louis MD. on 01/12/19 at 0705. Scribe Documentation Reviewed: Yes Provider Attestation: The documentation as recorded by the Maryse watt accurately reflects the service I personally performed and the decisions made by me, Giovanna Louis MD. Status of Scribe Document: Viewed
[2019-01-12 03:54] LABS: ABS Basophils 0.1 10^3/ul (0-0.2); ABS Eosinophils 0.3 10^3/ul (0-0.6); ABS Monocytes 0.6 10^3/ul (0-0.8); ABS Neutrophils 7.8 10^3/ul (1.5-7.7); Eosinophil % 2.7 %; Hematocrit 38 % (42-52); Lymphocyte % 18.5 %; Mean Corpuscular HGB Conc 34 g/dL (31-36); Mean Corpuscular Hemoglobin 31 pg (27-31); Mean Corpuscular Volume 92 fL (80-94); Mean Platelet Volume 7.3 fL (7.4-10.4); Platelet Count 269 10^3/uL (150-450); Red Blood Count 4.13 10^6 /uL (4.18-5.48); Red Cell Distribution Width 12 % (10-15); White Blood Count 10.7 10^3/uL (3.5-10.8)
[2019-01-12 04:12] LABS: Albumin 4.3 g/dL (3.2-5.2); Albumin/Globulin Ratio 1.4 (1-3); BUN/Creatinine Ratio 16.8 (8-20); Calcium 9.3 mg/dL (8.6-10.3); EGFR African American 91.2 (>60); EGFR Non-African American 75.4 (>60); Potassium 3.7 mmol/L (3.5-5.0); Total Bilirubin 0.3 mg/dL (0.2-1.0); Total Protein 7.3 g/dL (6.4-8.9)
[2019-01-12 04:14] LABS: Troponin I 0.01 ng/mL (<0.04)
[2019-01-12 07:18] VITALS: BP 130/69
== END 2019-01-12 07:13 | disposition home or self-care (01) ==
LOC: ED 03:18
DX: R42 Dizziness and giddiness (principal); R61 Generalized hyperhidrosis; R11.0 Nausea; I25.2 Old myocardial infarction; I10 Essential (primary) hypertension; G47.30 Sleep apnea, unspecified; Z95.5 Presence of coronary angioplasty implant and graft; Z88.1 Allergy status to other antibiotic agents; Z88.0 Allergy status to penicillin; Z87.891 Personal history of nicotine dependence
CPT/HCPCS: 36415; 71046; 80053; 84484; 85025; 93005; 99282

== ENCOUNTER 2019-03-22 16:00 | Emergency (ER) | payer BC ==
--- OUTSIDE RECORDS SUMMARY | 2019-03-22 16:06 | XMS REPORT | Summary of Care ---
:1960 Author Organization [facility] Address [address] [facility] [place] [address] Care Team Providers Name Role Phone Tate Vuong Primary Care Provider Reason for Visit Reason Comments Back Pain Encounter Details Date Type Department Care Team Description 02/17/2019 Office Visit [facility] Marino, Rocky, Lumbar strain, initial [address] [facility] encounter (Primary Dx) [place] [address] [address] [facility] [phone] [place] [id number] [phone] Allergies Active Allergy Reactions Severity Noted Date Comments Esomeprazole Magnesium 07/20/2007 Trihydrate Omeprazole Magnesium 07/20/2007 Pyb-Myppmwcfhv-Yxgkcoanhm-Se GI Reaction 10/29/2010 When taken in prep for nnosides colonoscopy, had persistent diarrhea afterward documented as of this encounter (statuses as of 02/17/2019) Medications Medication Sig Dispensed Refills Start Date End Date Status aspirin (ECOTRIN) 81 MG Take 1 Tab by 90 Tab 3 05/04/2018 Active Oral Tab EC mouth DAILY. Diltiazem HCl Coated Take 1 Tab by 90 Tab 3 06/18/2018 Active Beads 360 MG Oral TABLET mouth DAILY. SR 24 HR Rosuvastatin Calcium Take 1 Tab by 90 Tab 3 08/03/2018 Active (CRESTOR) 20 MG Oral Tab mouth DAILY. Spironolactone-HCTZ Take 1 Tab by 90 Tab 3 08/04/2018 Active 25-25 MG Oral Tab mouth DAILY. Additional information Patient taking differently: 0.5 Tab Oral DAILY, Reported on 09/02/2018 8:04 AM pantoprazole (PROTONIX) 40 TAKE 1 TABLET BY MOUTH 180 Tab 3 08/18/2018 Active MG Oral Tab EC TWO TIMES DAILY ALPRAZolam (XANAX) 0.5 MG Take 1 Tab by mouth THREE 30 Tab 0 08/20/2018 Active Oral Tab TIMES DAILY NEEDED (anxiety). Max Daily Amount: 1.5 mg. Azithromycin 500 MG Oral Tab Take 1 Tab by mouth 21 Tab 0 08/24/2018 Active DAILY. amoxicillin-clavulanic acid Take 1 Tab by mouth TWICE 20 Tab 0 09/10/2018 Active (AUGMENTIN) 875-125 MG Oral DAILY. With food Tab albuterol HFA (VENTOLIN) 108 Take 2 Puffs by 1 Inhaler 09/10/2018 Active (90 Base) MCG/ACT Inhalation inhalation EVERY FOUR Aero Soln HOURS NEEDED (Wheezing or dyspnea). 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 General patient education discussion including: obesity-related excess mortality, weight loss link to reduction of risk factors for cardiac and other diseases, importance of long-term maintenance treatment in weight loss HAYLEY (obstructive sleep apnea) 03/05/2011 FAMILY HISTORY OF PROSTATE CANCER 09/07/2003 GERD, REFLUX ESOPHAGEAL 05/19/2002 ANXIETY ATTACKS 05/18/1996 HERPES SIMPLEX 05/01/1993 Coronary artery disease involving wales coronary artery without angina pectoris Overview: Myocardial infarction 2017 [facility] documented as of this encounter (statuses as of 02/17/2019) Resolved Problems Problem Noted Date Resolved Date Posterior subcapsular cataract, left 02/15/2016 03/14/2016 Right elbow pain 01/12/2015 03/28/2017 Lateral epicondylitis of right elbow 01/12/2015 03/28/2017 Trochanteric bursitis of both hips 01/12/2015 03/28/2017 Campylobacter gastrointestinal tract infection 05/09/2014 03/28/2017 Sprain of neck 09/09/2012 03/28/2017 Sprain of thoracic region 09/09/2012 03/28/2017 Sprain of sacrum 08/07/2011 03/28/2017 Palpitations 05/19/2002 03/28/2017 documented as of this encounter (statuses as of 02/17/2019) Immunizations Name Administration Dates Next Due Adacel TdaP 02/23/2007 Depo Medrol (40mg) 04/03/2015, 09/21/2014, 09/21/2014 Depo Medrol (80mg) 01/12/2015, 11/27/2012 Influenza (IM) Preservative Free 12/24/2017, 01/23/2017, 02/05/2016, 02/09/2014, 04/03/2011, 02/28/2010, 03/22/2009, 02/24/2008 Influenza (IM) W/Pres 01/16/2015 documented as of this encounter Social History Tobacco Use Types Packs/Day Years Used Date Former Smoker 0 Quit: 10/01/2006 Smokeless Tobacco: Never Used Alcohol Use Drinks/Week oz/Week Comments Yes 5 Standard drinks or equivalent 7.0 drinks beer and bourbon weekly 2 Cans of beer Alcohol Habits Answer Date Recorded How often do you have a drink containing 4 or more times a week 02/01/2019 alcohol? How many drinks containing alcohol do you have 1 or 2 02/01/2019 on a typical day when you are drinking? How often do you have six or more drinks on one Not asked occasion? Sex Assigned at Date Recorded Not on file Job Start Date Occupation Industry Not on file Not on file Not on file Travel History Travel Start Travel End No recent travel history available. documented as of this encounter Last Filed Vital Signs Not on filedocumented in this encounter Progress Notes Rocky Pichardo DC - 02/17/2019 4:45 PM EST PATIENT: Spencer Garcia : 1960 DATE OF SERVICE: 02/17/2019 REFERRING PRACTITIONER: Thuan PRIMARY CARE PROVIDER: Tate Vuong Chief Complaint Patient presents with Back Pain HISTORY OF PRESENT ILLNESS: Spencer Garcia is a 58-y.o. male who presents for a follow-up visit. He reports mid back pain and low back pain. Since last office visit symptoms have been controlled. Response to previous treatment session: tolerated well Overall, the symptoms have been controlled. Additional comments: Exacerbation of the patients condition , golf Estimated percentage improved: Exacerbation of the patients condition Analog Pain Scale result: 06/21 NDI score: Oswestry score: Home exercise fulfillment: compliance with the home exercises was reported Current Outpatient Medications Medication Sig albuterol HFA (VENTOLIN) 108 (90 Base) MCG/ACT Inhalation Aero Soln Take 2 Puffs by inhalation EVERY FOUR HOURS NEEDED (Wheezing or dyspnea). ALPRAZolam (XANAX) 0.5 MG Oral Tab Take 1 Tab by mouth THREE TIMES DAILY NEEDED (anxiety).Max Daily Amount: 1.5 mg. amoxicillin-clavulanic acid (AUGMENTIN) 875-125 MG Oral Tab Take 1 Tab by mouth TWICE DAILY. With food aspirin (ECOTRIN) 81 MG Oral Tab EC Take 1 Tab by mouth DAILY. Azithromycin 500 MG Oral Tab Take 1 Tab by mouth DAILY. Diltiazem HCl Coated Beads 360 MG Oral TABLET SR 24 HR Take 1 Tab by mouth DAILY. pantoprazole (PROTONIX) 40 MG Oral Tab EC TAKE 1 TABLET BY MOUTH TWO TIMES DAILY Rosuvastatin Calcium (CRESTOR) 20 MG Oral Tab Take 1 Tab by mouth DAILY. Spironolactone-HCTZ 25-25 MG Oral Tab Take 1 Tab by mouth DAILY. ( Patient taking differently:Take 0.5 Tabs by mouth DAILY.) No current facility-administered medications for this visit. Allergies Allergen Reactions Nexium [Esomeprazole Magnesium Trihydrate] Prilosec Otc [Omeprazole Magnesium] Senna [Njj-Eggmkjmhth-Mxvdjcyyum-Sennosides] GI Reaction When taken in prep for colonoscopy, had persistent diarrhea afterward PHYSICAL EXAMINATION: There were no vitals filed for this visit. There is no height or weight on file to calculate BMI. Regions of muscle spasm: bilateral thoracolumbar paraspinal Regions of trigger points: none Regions of tenderness: Thoracolumbar junction Intersegmental Motion Evaluation Spinal joint dysfunction/chiropractic subluxation Acute: Thoracic: R-T10/11, L-T10/11, R-T11/12, L-T11/12 Lumbar: R-L1/2, L-L1/2, R-L2/3, L-L2/3 Posture Seated slumped posture is noted and a faulty sit to stand transition pattern is evidenced. Orthopedics Tests Simmons's test was + for pain in thoracolumbar junction . Thoracic spine extension reproduced the patient's complaints of low back pain . IMPRESSION: ICD-9-CM ICD-10-CM 1. Lumbar strain, initial encounter 847.2 S39.012A Response to care: Exacerbation of chronic condition Plan: History, Exam, Report of Findings, Manipulate areas of inter-segmental dysfunction as noted inthe section titled intersegmental motion evaluation above , instruct in exercisesfor the purpose of neuromuscular reeducation to improve strength and range of motion. . Manipulation: Spinal level(s): Thoracolumbar junction Follow up: Schedule follow-up here as needed if symptoms worsen. Author: Rocky Pichardo DC, 02/17/2019, 16:53 documented in this encounter Plan of Treatment Date Type Specialty Care Team Description 03/08/2019 Office Visit Cardiology Angelo Arriaga MD [address] [place] [address] [phone] Health Maintenance Due Date Last Done Comments PNEUMOCOCCAL 0-64 YRS (1 of 1964 1 - PPSV23) ZOSTER IMMUNIZATION SERIES 2008 (1 of 2) INFLUENZA VACCINE (#1) 2018 12/24/2017, 01/23/2017, 02/05/2016, Additional history exists DIABETES SCREENING 07/22/2019 07/21/2018, 01/21/2018, 11/18/2017, Additional history exists LIPID DISORDER SCREENING 08/04/2019 08/03/2018, 07/21/2018, 11/18/2017, Additional history exists DEPRESSION SCREENING 08/21/2019 08/20/2018 COLONOSCOPY SCREENING 02/02/2024 02/01/2019, 02/01/2019, 01/25/2014, Additional history exists HPV IMMUNIZATION SERIES Aged Out No longer eligible based on patient's age to complete this topic MENINGOCOCCAL VACCINE IMM Aged Out No longer eligible based on patient's age to complete this topic documented as of this encounter Goals Goal Patient Goal Associated Recent Patient-Stated? Author Type Problems Progress Blood Pressure Blood Pressure 125/66 No Yevgeniy, < 140/90 (02/01/2019 MD Tate 8:50 AM EDT) Note: This is an individualized treatment (blood pressure) goal for Spencer Garcia: Displayed above (on the left) is your goal for blood pressure control. Your most recent blood pressure is also shown above, on the right. You should try to achieve blood pressures that are lower than your goal listed above (on the left). Weight loss vs. 18 mo Lifestyle 10.9 (02/01/2019 7:17 AM No Tate Vuong MD max (lbs) >= 10 EDT) Note: This is an individualized lifestyle goal for Spencer Garcia: Your body mass index (BMI) is more than 30. You should lose weight. A reasonable starting goal is to lose 10 pounds. Displayed above is how many pounds you have lost thus far towards your 10 pound weight loss goal. Take all prescribed medications as directed Self-management Tate Lerner MD Note: This is an individualized self-management goal for Spencer Garcia: Please take all prescribed medications as directed. 1. Do not skip doses. If you cannot afford your medications, talk with your doctor. 2. Use a pill reminder system such as a pill box if needed. Your pharmacist can help you with this. 3. Contact your Pharmacy 5 days before your medication runs out. If you cannot take your medications for any reasons, talk with your doctor. 4. Please bring all of your medication bottles and inhalers (or a list of all your medications/inhalers) with you to every visit. Potential barriers to meeting all of your care plan goals will continue to be addressed on an ongoing basis. documented as of this encounter Implants Implanted Type Area Automatic Trimming Sewer Device Shelf Model / Serial Identifier Expiration Date / Lot Iol, [id number] 18.0 Diopter - [id number] Left: Eye STORZ [id number] / Implanted: Qty: 1 on 03/13/2016 by Flaca Valdivia MD at [facility] [id number] / documented as of this encounter Results Not on filedocumented in this encounter Visit Diagnoses Diagnosis Lumbar strain, initial encounter - Primary documented in this encounter Insurance Payer Benefit Plan / Subscriber ID Effective Dates Phone Address Type Group [employer] xxxxxxxxxxxx Effective for all [employer] dates Guarantor Name Account Type Relation to Date of Phone Billing Patient Address Spencer Garcia Personal/Family 1960 [id number] [facility] [facility] (Home) # [place], [place] (Work) [phone] documented as of this encounter
--- OUTSIDE RECORDS SUMMARY | 2019-03-22 16:06 | XMS REPORT | Summary of Care ---
:1960 Author Organization [facility] Address [address] [address] Care Team Providers Name Role Phone Tate Vuong Primary Care Provider Reason for Visit Reason Comments Follow Up Pt. in for a follow up on CAD. Reports Dizziness and some SOB. Encounter Details Date Type Department Care Team Description 03/08/2019 Office Visit [facility] Miguel Angel Arriaga, Coronary artery disease involving [place] coronary artery of [place] heart without angina pectoris ( Primary Dx); Cardiology MD Angelo Essential hypertension, benign; [address] [place] [address] [place] [address] [phone] Allergies Active Allergy Reactions Severity Noted Date Comments Esomeprazole Magnesium 07/20/2007 Trihydrate Omeprazole Magnesium 07/20/2007 Lrg-Nxmkryutzi-Pjfwvhsciq-Se GI Reaction 10/29/2010 When taken in prep for nnosides colonoscopy, had persistent diarrhea afterward documented as of this encounter (statuses as of 03/08/2019) Medications Medication Sig Dispensed Refills Start Date End Date Status aspirin (ECOTRIN) Take 1 Tab by 90 Tab 3 05/04/2018 Active 81 MG Oral Tab EC mouth DAILY. Diltiazem HCl Take 1 Tab by 90 Tab 3 06/18/2018 Active Coated Beads 360 mouth DAILY. MG Oral TABLET SR 24 HR Rosuvastatin Take 1 Tab by 90 Tab 3 08/03/2018 Active Calcium (CRESTOR) mouth DAILY. 20 MG Oral Tab Spironolactone-HCT Take 1 Tab by 90 Tab 3 08/04/2018 Active Z 25-25 MG Oral mouth DAILY. Tab pantoprazole TAKE 1 TABLET BY 180 Tab 3 08/18/2018 Active (PROTONIX) 40 MG MOUTH TWO TIMES Oral Tab EC DAILY ALPRAZolam (XANAX) Take 1 Tab by 30 Tab 0 08/20/2018 Active 0.5 MG Oral Tab mouth THREE TIMES DAILY NEEDED (anxiety). Max Daily Amount: 1.5 mg. amoxicillin-clavul Take 1 Tab by 20 Tab 0 09/10/2018 Active anic acid mouth TWICE (AUGMENTIN) DAILY. With food 875-125 MG Oral Tab albuterol HFA Take 2 Puffs by 1 Inhaler 5 09/10/2018 Active (VENTOLIN) 108 (90 inhalation EVERY Base) MCG/ACT FOUR HOURS Inhalation Aero NEEDED (Wheezing Soln or dyspnea). Azithromycin 500 Take 1 Tab by 21 Tab 0 08/24/2018 Discontinued MG Oral Tab mouth DAILY. 9 documented as of this encounter (statuses as of 03/08/2019) Active Problems Problem Noted Date Heather's disease [...] HERPES SIMPLEX 05/01/1993 Coronary artery disease involving [place] coronary artery without angina pectoris Overview: Myocardial infarction 2017 [facility] documented as of this encounter (statuses as of 03/08/2019) Resolved Problems Problem Noted Date Resolved Date [...] as of this encounter (statuses as of 03/08/2019) Immunizations Name Administration Dates Next Due Adacel [...] of this encounter Last Filed Vital Signs Vital Sign Reading Time Taken Comments Blood Pressure 140/72 03/08/2019 3:54 PM EST Pulse 56 03/08/2019 3:54 PM EST Temperature - - Respiratory Rate - - Oxygen Saturation - - Inhaled Oxygen Concentration - - Weight 120.2 kg (265 lb) 03/08/2019 3:54 PM EST Height 179.1 cm (5' 10.5") 03/08/2019 3:54 PM EST Body Mass Index 37.49 03/08/2019 3:54 PM EST documented in this encounter Patient Instructions Patient InstructionsMcAngelo Arreola MD - 03/08/2019 4:00 PM EST INCREASE the spironolactone/HCTZ to a full tab once daily. No other medication changes today. Work on weight loss with smaller portions and a low sodium diet as well as regular exercise. Follow up with Caitlyn or Magali in about 6 months and me in 1 year (or sooner if needed). documented in this encounter Progress Notes Angelo Arriaga MD - 03/08/2019 4:00 PM EST [facility] Note Patient: Spencer Garcia Date of : 1960 Date of Service: 03/08/2019 REFERRING PRACTITIONER: Tate Vuong PRIMARY CARE PROVIDER: Tate Vuong Chief Complaint: Chief Complaint Patient presents with Follow Up Pt. in for a follow up on CAD. Reports Dizziness and some SOB. History of Present Illness: We had the pleasure of seeing Spencer Garcia today at the [facility]. He is a 58-y.o. male with obesity, anxiety, HAYLEY on CPAP, GERD, HTN, hyperlipidemia, prior tobacco abuse, and CAD s/p inferior STEMI 01/06/2017 s/p staged intervention of the RCA with one CHADD on 01/06/17 and PCI to the Cx with one CHADD on 01/08/17 at [facility]. Mr. Garcia returns to cardiology clinic today for routine f/u. Since his last visit with me he's gained ~15 lbs. From a symptom standpoint, he reports that he stopped chewing the nicotine gum and thinks that has contributed some to his weight gain b/c he snacks more. He sleeps 8-9 hours per nightand has had difficulty going to the gym d/t motivation issues. Does ride his bike around his property with his dog and feels OK with that activity. No exertional CP/pressure or limiting dyspnea. Sometimes gets some lightheadedness with standing quickly but no palpitations or syncope. No orthopnea or paroxysmal dyspnea on his CPAP, but continues to have slight lower extremity edema. Patient Active Problem List Diagnosis GERD, REFLUX ESOPHAGEAL HERPES SIMPLEX ANXIETY ATTACKS FAMILY HISTORY OF PROSTATE CANCER HAYLEY (obstructive sleep apnea) BMI 32.0-32.9,adult High cholesterol Bilateral low back pain with sciatica Bilateral hip pain Pseudophakia of left eye Coronary artery disease involving [place] coronary artery without angina pectoris PCO (posterior capsular opacification), left Myopia of right eye ST elevation myocardial infarction involving left circumflex coronary artery (HCC) Essential hypertension, benign Heather's disease of hip (HCC) Past Medical History: Diagnosis Date Anxiety ANXIETY ATTACKS 05/18/1996 Colon polyp 2010 FAMILY HISTORY OF PROSTATE CANCER 09/07/2003 GERD 05/19/2002 HERPES SIMPLEX 05/01/1993 [place] (myocardial infarction) (HCC) HAYLEY (obstructive sleep apnea) Palpitations 05/19/2002 Sinusitis, chronic Surgery, elective Past Surgical History: Procedure Laterality Date APPENDECTOMY 12/2002 BRACHIOCEPHALIC ANGIOPLASTY 01/08/2017 two stents CATARACT/LENS SURGERY COLONOSCOPY 12/2002 had repeat exam in January 2014 COLONOSCOPY N/A 02/01/2019 Procedure: COLONOSCOPY; Surgeon: Damian Nolasco MD FAC; [facility] LEFT HEART CARDIAC CATH 01/06/17, 01/08/17 PHACOEMULSIFICATION WITH INTRA OCULAR LENS Left 03/13/2016 Procedure: PHACOEMULSIFICATION WITH INTRA OCULAR LENS; Surgeon: Flaca Valdivia MD; Location: [facility] OR VASECTOMY 2005 YAG CAPSULOTOMY - OS - LEFT EYE Left 06/27/2017 Dr Valdivia Allergies Allergen Reactions Nexium [Esomeprazole Magnesium Trihydrate] Prilosec Otc [Omeprazole Magnesium] Senna [Ued-Gvhejeinqz-Rvpdzitcjz-Sennosides] GI Reaction When taken in prep for colonoscopy, had persistent diarrhea afterward Current Outpatient Medications Medication Sig albuterol HFA [...] EC Take 1 Tab by mouth DAILY. Diltiazem HCl Coated Beads 360 MG Oral TABLET SR 24 HR Take 1 Tab by mouth DAILY. pantoprazole (PROTONIX) 40 MG Oral Tab EC TAKE 1 TABLET BY MOUTH TWO TIMES DAILY Rosuvastatin Calcium (CRESTOR) 20 MG Oral Tab Take 1 Tab by mouth DAILY. Spironolactone-HCTZ 25-25 MG Oral Tab Take 1 Tab by mouth DAILY. No current facility-administered medications for this visit. Family History Problem Relation Age of Onset High Cholesterol Mother Colon Cancer Mother Cancer Father PROSTATE Suicide - Completed Brother Social History Socioeconomic History Marital status: Spouse name: Not on file Number of children: Not on file Years of education: Not on file Highest education level: Not on file Occupational History Not on file Social Needs Financial resource strain: Not on file Food insecurity: Worry: Not on file Inability: Not on file Transportation needs: Medical: Not on file Non-medical: Not on file Tobacco Use Smoking status: Former Smoker Packs/day: 0.00 Last attempt to quit: 10/01/2006 Years since quittin.4 Smokeless tobacco: Never Used Substance and Sexual Activity Alcohol use: Yes Alcohol/week: 7.0 standard drinks Types: 5 Standard drinks or equivalent, 2 Cans of beer per week Frequency: 4 or more times a week Drinks per session: 1 or 2 Comment: drinks beer and bourbon weekly Drug use: No Sexual activity: Yes Partners: Female Lifestyle Physical activity: Days per week: Not on file Minutes per session: Not on file Stress: Not on file Relationships Social connections: Talks on phone: Not on file Gets together: Not on file Attends sabianist service: Not on file Active member of club or organization: Not on file Attends meetings of clubs or organizations: Not on file Relationship status: Not on file Intimate partner violence: Fear of current or ex partner: Not on file Emotionally abused: Not on file Physically abused: Not on file Forced sexual activity: Not on file Other Topics Concern Back Care Not Asked Bike Helmet Not Asked Blood Transfusions Not Asked Caffeine Concern Not Asked Exercise Yes Comment: treadmill 30 mins 3-4 days per week Hobby Hazards Not Asked International Travel Not Asked Service Not Asked Occupational Exposure Not Asked Seat Belt Yes Self-Exams Not Asked Sleep Concern Not Asked Special Diet Not Asked Stress Concern Not Asked Weight Concern Yes Comment: would like to lose 37+ lbs Social History Narrative No children Lives in [place] Review of Systems - Negative except as noted in HPI. Physical Exam: Vitals: 03/08/19 1554 BP: 140/72 BP Location: Left arm Patient Position: Sitting Pulse: 56 Weight: 265 lb (120.2 kg) Height: 5' 10.5" (1.791 m) Body mass index is 37.49 kg/m. General: Obese, alert 58-y.o. male in NAD HEENT: anicteric, MMM, no E/E OP, conj pink Neck: JVP approx 5-6 cm above RA, no carotid bruits or LAD CV: RRR, normal s1/s2, 2/6 LUIS at USB as before. Pulm: CTA bilaterally without wheezes, rhonchi, or rales. No increased work of breathing. Abd: soft, obese, NT, ND, +BS. No appreciable pulsatile masses or bruits. Ext: Trace bilateral lower extremity edema, no cyanosis, no cords, redness, or warmth, 2+ distal pulses Neuro: no gross focal deficits Skin: no visible lesions Labs: Lab Results Component Value Date NA 139 07/21/2018 K 3.5 07/21/2018 CL 104 07/21/2018 CO2 24 07/21/2018 GLUCOSE 112 (H) 07/21/2018 BUN 14 07/21/2018 CREATININE 1.0 07/21/2018 CALCIUM 9.1 07/21/2018 TP 7.2 07/21/2018 ALBUMIN 4.1 07/21/2018 AST 43 07/21/2018 ALT 54 07/21/2018 ALK 94 07/21/2018 TBILI 0.3 07/21/2018 EGFR >60 07/21/2018 No results found for: BNP Lab Results Component Value Date CHOL 125 07/21/2018 TRIG 218 (H) 07/21/2018 HDL 55 07/21/2018 LDL 26 07/21/2018 LDLHDLRATIO 0.5 07/21/2018 CHOLHDLRATIO 2.3 07/21/2018 Cardiac Studies: EKG Today (I personally reviewed): Sinus romana in 50s with occasional PACs. LVH. Exercise Stress Echocardiogram 08/03/2018: Baseline Echocardiogram: This was a limited study for Stress Echo. Mild concentric LVH with mild left atrial enlargement. Normal LV systolic function with no regional wall motion abnormalities and estimated LVEF 60-65%. Upper normal right heart size with grossly normal RV contractility. No hemodynamically significant valvular disease on limited imaging. No pericardial effusion. FINAL IMPRESSION: Exercise tolerance of the patient is good. Resting hypertension with hypertensive response to exercise. This test is equivocal for ischemia by symptoms (limiting dyspnea), positive for ischemia by EKG, and negative for ischemia by echocardiographic imaging at a high cardiac workload. The above constellation of findings are most consistent with subendocardial ischemia from a very high exercise blood pressure rather than a localized severe epicardial coronary lesion. Clinical correlation is suggested. TTE at [place] 01/07/2017: Left Heart Cath 01/08/17 at [facility]: Left Heart Cath 01/06/17 at [facility]: Assessment & Plan: Spencer Garcia is a 58-y.o. male with obesity, anxiety, HAYLEY on CPAP, GERD, HTN, hyperlipidemia, prior tobacco abuse, and CAD s/p inferior STEMI 01/06/2017 s /p staged intervention of the RCA with one CHADD on 01/06/17 and PCI to the Cx with one CHADD on 01/08/17 at [facility]. ICD-9-CM ICD-10-CM 1. Coronary artery disease involving [place] coronary artery of [place] heart without angina pectoris 414.01 I25.10 AMBULATORY 12 LEAD EKG (GLOBAL) 2. Essential hypertension, benign 401.1 I10 3. Dyslipidemia 272.4 E78.5 1. Coronary Artery Disease, s/p STEMI and CHADD to RCA and Cx: No current anginal symptoms. Will proceed as follows: Antiplatelets: Continue aspirin 81 mg daily. Statin: LDL 26 in July 2018. Cont 20mg Crestor. Beta-brina: Not on, but apparently had some fatigue on metoprolol previously and his HR is fairly low at baseline. OK to remain off BB. Other: I again recommended continuing to work on weight loss and continuing regular exercise and a healthy diet. 2. HTN: BP has not quite been at our optimal goal of < 130/80 mmHg. Cont diltiazem at current dose. Will try increasing Aldactazide back to a full tab once daily. He'll let me know if he has anyproblems on the higher dose. Weight loss, regular exercise, and a low sodium diet. Thank you for allowing me to participate in the care of Spencer Garcia. We will plan on f/u in our office in ~6 months with my FULFILLMENT MAIL CLERK/PA and 1 year with me or sooner prn. If you have any questions or concerns please feel free to call our office at . Angelo Arriaga MD, 03/08/2019, 16:19 This note was created using my previous note as a template; changes were made where appropriate, andall information in the current note is up to date to the best of my knowledge.Electronically signed by Angelo Arriaga MD at 2018 4:21 PM ESTdocumented in this encounter Plan of Treatment Date Type Specialty Care Team Description 09/07/2019 Office Visit Cardiology Caitlyn Vega PA [address] [address] 03/06/2020 Office Visit Cardiology Angelo Arriaga MD [address] [place], [place] [id number] Name Type Priority Associated Diagnoses Order Schedule AMBULATORY 12 LEAD EKG EKG Routine Coronary artery disease Ordered: 2018 (GLOBAL) involving [place] coronary artery of [place] heart without angina pectoris Health Maintenance Due Date Last Done Comments PNEUMOCOCCAL 0-64 YRS (1 of 1964 1 - PPSV23) ZOSTER IMMUNIZATION SERIES 2008 (1 of 2) INFLUENZA VACCINE (#1) 2018 12/24/2017, 01/23/2017, 02/05/2016, Additional history exists DIABETES SCREENING 07/22/2019 07/21/2018, 01/21/2018, 11/18/2017, Additional history exists LIPID DISORDER SCREENING 08/04/2019 08/03/2018, 07/21/2018, 11/18/2017, Additional history exists DEPRESSION SCREENING 08/21/2019 08/20/2018 Colonoscopy 02/02/2024 02/01/2019, 02/01/2019, 01/25/2014, Additional history exists HPV IMMUNIZATION SERIES Aged Out No longer eligible based on patient's age to complete this topic MENINGOCOCCAL VACCINE IMM Aged Out No longer eligible based on patient's age to complete this topic documented as of this encounter Goals Goal Patient Goal Associated Recent Patient-Stated? Author Type Problems Progress Blood Pressure Blood Pressure 140/72 No Yevgeniy, < 140/90 (03/08/2019 MD Tate 3:54 PM EST) Note: This is an individualized treatment (blood pressure) goal for Spencer Garcia: Displayed above (on the left) is your goal for blood pressure control. Your most recent blood pressure is also shown above, on the right. You should try to achieve blood pressures that are lower than your goal listed above (on the left). Weight loss vs. 18 mo Lifestyle 0 (03/08/2019 3:54 PM EST) No Tate Vuong MD max (lbs) >= 10 Note: This is an individualized lifestyle goal for Spencer Garcia: Your body mass index (BMI) is more than 30. You should lose weight. A reasonable starting goal is to lose 10 pounds. Displayed above is how many pounds you have lost thus far towards your 10 pound weight loss goal. Take all prescribed medications as directed Self-management No Tate Vuong MD Note: This is an individualized self-management [...] of this encounter Implants Implanted Type Area Gun Perforator Loader Device Shelf Model / Serial Identifier Expiration Date / Lot Iol, [id number] 18.0 Diopter - [id number] Left: Eye STORZ [id number] / Implanted: Qty: 1 on 03/13/2016 by Flaca Valdivia MD at [facility] [id number] / documented as of this encounter Results Not on filedocumented in this encounter Visit Diagnoses Diagnosis Coronary artery disease involving [place] coronary artery of [place] heart without angina pectoris - Primary Essential hypertension, benign Dyslipidemia Other and unspecified hyperlipidemia documented in this encounter Insurance Payer Benefit Plan / Subscriber ID Effective Dates Phone Address Type Group go2 media BCBS go2 media BCBS xxxxxxxxxxxx Effective for all [employer] Guarantor Name Account Type Relation to Date of Phone Billing Patient Address Spencer Garcia Personal/Family [phone] (Home) # [place], [place] ([place]) [phone] documented as of this encounter
--- OUTSIDE RECORDS SUMMARY | 2019-03-22 16:06 | XMS REPORT | Summary of Care ---
:1960 Author Organization [facility] Address [address] [address] Care Team Providers Name Role Phone Tate Bauer Primary Care Provider Reason for Visit Auth/Cert Status Reason Specialty Diagnoses / Procedures Referred By Contact Referred To Contact Encounter Details Date Type Department Care Team Description 02/01/2019 Hospital Encounter [facility] SpencerozKatelyn leiva Procedure 1 Shankssteph Colon MD [facility] [address] [id number] [address] [phone] [place] [address] [phone] Allergies Active Allergy Reactions Severity Noted Date Comments Esomeprazole Magnesium 07/20/2007 Trihydrate Omeprazole Magnesium 07/20/2007 Xri-Ffihidrdfl-Nnhthprqpx-Se GI Reaction 10/29/2010 When taken in prep for nnosides colonoscopy, had persistent diarrhea afterward documented as of this encounter (statuses as of 02/02/2019) Medications Medication Sig Dispensed Refills Start Date [...] 108 Take 2 Puffs by 1 Inhaler 5 09/10/2018 Active (90 Base) MCG/ACT Inhalation inhalation EVERY FOUR Aero Soln HOURS NEEDED (Wheezing or dyspnea). 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 Overview: Myocardial infarction 2017 [facility] documented as of this encounter (statuses as of 02/02/2019) Resolved Problems Problem Noted Date Resolved Date [...] as of this encounter (statuses as of 02/02/2019) Immunizations Name Administration Dates Next Due Adacel [...] Sign Reading Time Taken Comments Blood Pressure 125/66 02/01/2019 8:50 AM EDT Pulse 51 02/01/2019 8:50 AM EDT Temperature 36.3 02/01/2019 8:50 AM EDT C (97.3 F) Respiratory Rate 16 02/01/2019 8:51 AM EDT Oxygen Saturation 97% 02/01/2019 8:50 AM EDT Inhaled Oxygen Concentration - - Weight 111.1 kg (245 lb) 02/01/2019 7:17 AM EDT Height - - Body Mass Index 34.66 09/02/2018 7:52 AM EDT documented in this encounter Progress Notes Tate Bauer MD - 02/01/2019 9:17 AM EDTResults will be reviewed with the patient at time of upcoming visit documented in this encounter Plan of Treatment Date Type Specialty Care Team Description 03/08/2019 Office Visit Cardiology Angelo Arriaga MD [address] [place] [address] [phone] Name Type Priority Associated Diagnoses Order Schedule COLONOSCOPY Diagnostic/Surgical Routine TOMORROW - GENERAL Procedures USE for 1 Occurrences starting 02/01/2019 until 02/01/2019 GLUCOSE (POCT) Automated POCT Routine X1 for 1 Occurrences starting 02/01/2019 until 02/01/2019 Health Maintenance Due Date Last Done Comments [...] Lifestyle 10.9 (02/01/2019 7:17 AM No Tate Bauer MD max (lbs) >= 10 EDT) Note: [...] of this encounter Implants Implanted Type Area Fishing Tool Supervisor Device Shelf Model / Serial Identifier Expiration Date / Lot Iol, [id number] 18.0 Diopter - [id number] Left: Eye STORZ [id number] / Implanted: Qty: 1 on 03/13/2016 by Flaca Valdivia MD at [facility] [id number] / documented as of this encounter Procedures Procedure Name Priority Date/Time Associated Diagnosis Comments COLONOSCOPY 02/01/2019 8:02 AM EDT COLONOSCOPY REPORT Routine 02/01/2019 7:53 AM Results for this EDT procedure are in the results section. documented in this encounter Results COLONOSCOPY REPORT (02/01/2019 7:53 AM EDT) GI Procedure [facility] [employer] __ Patient Name: Spencer Garcia Procedure Date: 02/01/2019 7:53 AM Date of : 1960 Admit Type: Outpatient Age: 58 Room: Room 17 Gender: Male Note Status: Finalized Attending MD: MD ANDRE TA Instrument Name: [id number] __ Procedure: Colonoscopy Indications: Colon cancer screening in patient at increased risk: Colorectal cancer in mother Providers: MD ANDRE MULLEN, Imelda Grewal RN (Nurse), Gloria Mendoza, Creative Arts Music Therapist (Creative Arts Music Therapist) Referring MD: TATE BAUER MD (Referring MD) Medicines: Monitored Anesthesia Care Complications: No immediate complications. __ Procedure: The patient's current medications and allergies were reviewed and recorded in the nurses notes. The patient was made aware of the risk of the procedure which can include: bleeding, infection, perforation, an adverse reaction to sedation, and a risk of missed lesions, among others. The patient appeared to understand. An opportunity for questions was provided, and an informed consent form was signed. The scope was passed under direct vision. Throughout the procedure, the patient's blood pressure, pulse EKG, and oxygen saturations were monitored continuously. The Colonoscope was introduced through the anus and advanced to the cecum, identified by appendiceal orifice and ileocecal valve. The colonoscopy was performed without difficulty. The patient tolerated the procedure well. The quality of the bowel preparation was good. Findings: Internal hemorrhoids were found during retroflexion. The hemorrhoids were Grade I (internal hemorrhoids that do not prolapse). The exam was otherwise without abnormality. Impression: - Internal hemorrhoids. - The examination was otherwise normal. - No specimens collected. Recommendation: - - Discharge patient to home. - High fiber diet indefinitely. - Continue present medications. - Repeat colonoscopy in 5 years for surveillance. - Follow-up sooner prn change in status, symptom changes or development, change in risk factors, etc. - Polyps can be missed. - Return to referring physician as previously scheduled. - Patient has a contact number available for emergencies. The signs and symptoms of potential delayed complications were discussed with the patient. Return to normal activities tomorrow. Written discharge instructions were provided to the patient - If you have a medical emergency, call 911 immediately. Procedure Code(s): --- Professional --- 38237, Colonoscopy, flexible; diagnostic, including collection of specimen(s) by brushing or washing, when performed (separate procedure) Diagnosis Code(s): --- Professional --- Z80.0, Family history of malignant neoplasm of digestive organs K64.0, First degree hemorrhoids CPT copyright 2017 [employer]. All rights reserved. The codes documented in this report are preliminary and upon ornamental bronze worker review may be revised to meet current compliance requirements. SHIKHA VILLALPANDO MD FAC 02/01/2019 8:34:35 AM This report has been signed electronically. Number of Addenda: 0 Note Initiated On: 02/01/2019 7:53 AM CC Letter to: TATE BAUER MD (CC) Specimen Performing Organization Address City/State/Zipcode Phone Number [employer] documented in this encounter Administered Medications Medication Order MAR Action Action Date Dose Rate Site FentaNYL (PF) (SUBLIMAZE) injection (PF) 25 mcg 25 mcg, Intravenous Push, PRU Q5MIN PRN, Starting Fri02/01/19 at 0834, Until Fri02/01/19 at 1118, Mild Pain (pain scale 1-3) - IV - 1st line - if immediate effect required or patient cannot tolerate PO, 4 Recovery FentaNYL (PF) (SUBLIMAZE) injection (PF) 50 mcg 50 mcg, Intravenous Push, PRU Q5MIN PRN, Starting Fri02/01/19 at 0834, Until Fri02/01/19 at 1118, Moderate Pain (pain scale 4-6) - IV - 1st line - if immediate effect required or patient cannot tolerate PO, Severe Pain (pain scale 7-10) - IV - 1st line - if immediate effect required or patient cannot tolerate PO, 4 Recovery HYDROmorphone (DILAUDID) syringe 0.3 mg 0.3 mg, Intravenous Push, PRU Q5MIN PRN, Starting Fri02/01/19 at 0834, Until Fri02/01/19 at 1118, Mild Pain (pain scale 1-3) IV - 2nd line - if immediate effect required or cannot tolerate PO & still had mild pain 4 hrs after admin of 1st line agent or patient did not tolerate 1st line agent, 4 Recovery lactated ringers IV Intravenous, at 100 mL/hr, PRU CONTINUOUS, Starting Fri02/01/19 at 0840, Until Fri02/01/19 at 1118, 4 Recovery meperidine (DEMEROL) syringe 25 mg 25 mg, Intravenous Push, PRU Q5MIN PRN, 2 doses, Starting Fri02/01/19 at 0834 , Until Fri02/01/19 at 1118, Shivering/Chills/Rigors, 4 Recovery midazolam (VERSED) injection 0.5 mg 0.5 mg, Intravenous Push, PRU Q5MIN PRN, Starting Fri02/01/19 at 0834, Until Fri02/01/19 at 1118, Anxiety - IV - 1st line - if immediate effect required or patient cannot tolerate PO, 4 Recovery normal saline IV Intravenous, at 25 mL/hr, CONTINUOUS, Starting Fri02/02/19 at 0600, Until Fri02/01/19 at 1118 ondansetron (ZOFRAN) injection 4 mg 4 mg, Intravenous Push, PRU X1 PRN, 1 dose, Starting 02/01/19 at 0834, Until 02/01/19 at 1118, Nausea/Vomiting - IV - 1st line - If immediate effect required or patient cannot tolerate PO, 4 Recovery prochlorperazine (COMPAZINE) injection 2.5 mg 2.5 mg, Intravenous Push, PRU PRN, 2 doses, Starting 02/01/19 at 0834, Until 02/01/19 at 1118, Nausea/Vomiting - IV - 2nd line - if immediate effect required or patient cannot tolerate PO and no relief 1 hours after administration of 1st line agent, 4 Recovery documented in this encounter Insurance Payer Benefit Plan / Subscriber ID Effective Dates Phone Address Type Group [email or web address] [email or web address] Effective for all [employer] Guarantor Name Account Type Relation to Date of Phone Billing Patient Address Spencer Garcia Personal/Family [phone] (Home) # [place], [place] (Work) [id number] documented as of this encounter
[2019-03-22 16:18] VITALS: BP 132/80
--- NOTE | 2019-03-22 16:32 | UC ---
Abdominal Pain Male HPI - HPI Summary HPI Summary: 58-year-old male comes in with a chief complaint of abdominal pain. 5 days ago started with mid abdominal pain and fevers and chills. He vomited the first day of his symptoms. Reports having flulike symptoms for the last several days. Abdominal pain is diffuse and crampy it's of the lower abdomen and in the midabdomen. No upper abdominal pain. Decreased by mouth appetite. Has had some fevers. No history of diverticulitis he did have his appendix out 14 or 15 years ago. No other abdominal surgeries. He has not had a bowel movement since 5 days ago. He also has been having very rare passing of gas. Pain its worse is about a 7 out of 10. Movement quite often decreases the pain. At this time in clinic his pain is 5 out of 10. Reports normal urination. - History of Current Complaint Chief Complaint: UCAbdominalPain Stated Complaint: ABDOMINAL PAIN Time Seen by Provider: 03/22/19 16:08 Pain Intensity: 7 - Allergies/Home Medications Allergies/Adverse Reactions: Allergies Allergy/AdvReac Type Severity Reaction Status Date / Time amoxicillin [From Augmentin] Allergy Intermediate Palpitation Verified 01/12/19 03:31 s clavulanic acid Allergy Intermediate Palpitation Verified 01/12/19 03:31 [From Augmentin] s Home Medications: Home Medications Diltiazem XR EXTEND Releas(NF) [Cartia XR (NF)] 360 mg PO DAILY 03/22/19 [ History Confirmed 03/22/19] Pantoprazole TAB * [Protonix TAB*] 40 mg PO BID 03/22/19 [History Confirmed 12/31] Rosuvastatin Calcium [Crestor] 20 mg PO DAILY 03/22/19 [History Confirmed ] Spironolactone 12.5 mg PO DAILY 03/22/19 [History Confirmed 03/22/19] PMH/Surg Hx/FS Hx/Imm Hx Previously Healthy: Yes Endocrine History: Dyslipidemia Cardiovascular History: Hypertension GI/ History: Gastroesophageal Reflux - Surgical History Surgical History: Yes Surgery Procedure, Year, and Place: appendectomy 2001, [facility] - Family History Known Family History: Positive: Hypertension, Diabetes, Other - colon cancer Negative: Cardiac Disease - Social History Alcohol Use: Occasionally Substance Use Type: None Smoking Status (MU): Former Smoker Have You Smoked in the Last Year: No - Immunization History Most Recent Influenza Vaccination: 2015 Most Recent Tetanus Shot: 04/04/13 Most Recent Pneumonia Vaccination: N/A Review of Systems All Other Systems Reviewed And Are Negative: Yes Constitutional: Positive: Fever, Other - SEE HPI Skin: Positive: Negative Eyes: Positive: Negative ENT: Positive: Negative Respiratory: Positive: Negative Cardiovascular: Positive: Negative Gastrointestinal: Positive: Abdominal Pain, Vomiting, Nausea, Other - SEE HPI Genitourinary: Positive: Negative Motor: Positive: Negative Neurovascular: Positive: Negative Musculoskeletal: Positive: Negative Neurological: Positive: Negative Psychological: Positive: Negative Is Patient Immunocompromised?: No Physical Exam Triage Information Reviewed: Yes Appearance: Well-Appearing, Well-Nourished, Pain Distress - MILD WITH ABDOMINAL EXAM Vital Signs: Initial Vital Signs Temp 97.0 F 03/22/19 16:10 Pulse 76 03/22/19 16:10 Resp 18 03/22/19 16:10 BP 132/80 03/22/19 16:10 Pulse Ox 94 03/22/19 16:10 Vital Signs Reviewed: Yes Eye Exam: Normal Eyes: Positive: Conjunctiva Clear Neck: Positive: Supple Respiratory: Positive: Lungs clear, Normal breath sounds, No respiratory distress Cardiovascular: Positive: RRR Abdomen Description: Positive: Other: - There is tympany. Hypoactive bowel sounds. Mild diffuse tenderness around the umbilicus and right lower quadrant suprapubic and left lower quadrant. Epigastrium is nontender to palpation. Bowel Sounds: Positive: Hypoactive Musculoskeletal: Positive: Strength Intact, ROM Intact Neurological: Positive: Alert, Muscle Tone Normal Psychological: Positive: Age Appropriate Behavior Skin Exam: Normal Abd Pain Male Course/Dx - Course Course Of Treatment: Mammography Tech: Nathaniel Baker ([id number]) Glass Washer And Carrier: DI (DI) Report Date: 03/22/2019 17:08:00 Report Status: Final Start of Report Content Patient Name: MIN CURIEL Medical Record#: [id number] Ordering Physician: Rocky Harris MD Acct.#: [id number] : 01/1961 Age: 58 Sex: M Location: [facility] Exam Date: 03/22/19 1624 ADM Status: REG ER Order Information: CT ABD/PEL W/O Accession Number: [id number] CPT: 25006 CLINICAL HISTORY: Abdominal pain and no bowel movement x5 days. Relevant surgical history includes appendectomy. COMPARISON: CT abdomen pelvis June 03, 2014 TECHNIQUE: Noncontrast CT examination of the abdomen and pelvis from the lung bases through the initial tuberosities. FINDINGS: VISUALIZED LUNG BASES: The visualized lung bases are grossly clear. There is no pleural effusion. ABDOMEN AND PELVIS: Evaluation of the solid organs and vasculature is limited without intravenous contrast. Liver: The liver parenchyma exhibits homogenous attenuation without focal suspicious mass, surface irregularity or gross biliary duct dilatation. Gallbladder: Normal. Spleen: Normal in size and homogenous in attenuation. Pancreas: Normal. Adrenal glands: Normal in appearance. Kidneys: Normal in appearance without focal mass, calcification or signs of hydronephrosis. The proximal small bowel exhibiting air-fluid levels and there is dilated up to 4 cm in thickness. There is questionable identification of a transition point at the right of midline mid- level abdomen (axial image 55 of 103). Distal to this point the small bowel is mostly decompressed. There is gas and stool seen throughout the colon. Surgical material at the base of the cecum is seen consistent with the patient's reported surgical history. There is no gross retroperitoneal or mesenteric lymphadenopathy. The pelvic viscera is normal in appearance. The calcified abdominal aorta and iliac arteries are normal in course and diameter. Vasectomy clips are incidentally noted. Degenerative changes include multilevel loss of intervertebral disc height involving the lower thoracic and lumbar spine.There are no suspicious bone lesions. IMPRESSION: 1. CT findings are consistent with partial small bowel obstruction with a transition point potential identified at the right of mid line mid-level abdomen. 2. Additional chronic, degenerative and iatrogenic findings described in the body the report. <Electronically signed by Nathaniel Baker MD in OV> 03/22/191703 Dictated By: Nathaniel Baker MD Dictated Date/Time: 1658 Transcribed Date/Time: 03/22/191658 Copy to: CC:Tate Vuong MD ; Rocky Harris MD Imaging - [facility] Imaging - [facility] Imaging - [facility] [address] [facility] [address] [place], [place] [id number] [place] [id number] [place] [id number] ph [phone]) ph ([phone]) ph ([phone]) ==== End of Report Content I discussed the CT report with the patient and recommended further evaluation now in the emergency department. - Differential Dx/Clinical Impression Provider Diagnosis: Partial small bowel obstruction Discharge ED - Sign-Out/Discharge Documenting (check all that apply): Patient Departure All imaging exams completed and their final reports reviewed: Yes - Discharge Plan Condition: Stable Disposition: HOME-RECOMMEND TO ED Patient Education Materials: Bowel Obstruction (ED) Referrals: Tate Vuong MD [Primary Care Provider] - Additional Instructions: GO DIRECTLY TO THE EMERGENCY DEPARTMENT FOR FURTHER EVALUATION AND CARE OF YOUR PARTIAL SMALL BOWEL OBSTRUCTION. - Billing Disposition and Condition Condition: STABLE Disposition: Home-Recommend to ED
== END 2019-03-22 17:45 | disposition home health service (06) ==
LOC: UCEAST 16:00
DX: K56.600 Partial intestinal obstruction, unspecified as to cause (principal); M47.896 Other spondylosis, lumbar region; I10 Essential (primary) hypertension; E78.5 Hyperlipidemia, unspecified; K21.9 Gastro-esophageal reflux disease without esophagitis; M47.894 Other spondylosis, thoracic region; Z87.891 Personal history of nicotine dependence; Z79.899 Other long term (current) drug therapy; Z88.0 Allergy status to penicillin
CPT/HCPCS: 74176; 99212; G0463

== ENCOUNTER 2019-03-22 18:07 | Inpatient (IN) | payer BC ==
[2019-03-22 20:50] LABS: ABS Basophils 0.1 10^3/ul (0-0.2); ABS Eosinophils 0.1 10^3/ul (0-0.6); ABS Lymphocytes 2.8 10^3/ul (1.0-4.8); ABS Neutrophils 9.6 10^3/ul (1.5-7.7); Eosinophil % 0.4 %; Hematocrit 43 % (42-52); Hemoglobin 14.6 g/dL (14.0-18.0); Lymphocyte % 20.7 %; Mean Corpuscular HGB Conc 34 g/dL (31-36); Mean Corpuscular Hemoglobin 31 pg (27-31); Mean Corpuscular Volume 91 fL (80-94); Mean Platelet Volume 7.5 fL (7.4-10.4); Platelet Count 356 10^3/uL (150-450); Red Cell Distribution Width 12 % (10-15); White Blood Count 13.5 10^3/uL (3.5-10.8)
[2019-03-22 21:05] LABS: Albumin 4.9 g/dL (3.2-5.2); Albumin/Globulin Ratio 1.6 (1-3); BUN/Creatinine Ratio 16.1 (8-20); Calcium 10.8 mg/dL (8.6-10.3); EGFR Non-African American 59.5 (>60); Globulin 3.1 g/dL (2-4); Total Bilirubin 0.5 mg/dL (0.2-1.0)
[2019-03-22] MEDS ORDERED: NS 0.9% 1000 ML** 1,000 ML IV ONE (21:35)
--- NOTE | 2019-03-22 22:10 | ED ---
Abdominal Pain/Male - HPI Summary HPI Summary: Pt is a 58 y/o M presenting to the ED coming from [facility] to be [place] [facility] [place] bowel [place]. Pt states about 5 days ago woke up around 0500 and vomited violently, then did not vomit again. Since then, hes had mid-lower abd pain, intermittent chills, bodyaches, decreased appetite, and constipation. He denies urinary sx or fevers. Hx appendectomy. - History of Current Complaint Chief Complaint: EDAbdPain Stated Complaint: BOWEL OBSTRUCTION PER PT Time Seen by Provider: 03/22/19 22:00 Hx Obtained From: Patient Onset/Duration: Gradual Onset, Lasting Days, Still Present Timing: Constant, Lasting Days Severity Initially: Moderate Severity Currently: Moderate Pain Intensity: 5 Pain Scale Used: 0-10 Numeric Location: Suprapubic, Umbilical Radiates: No Aggravating Factor(s): Food Alleviating Factor(s): Nothing Associated Signs And Symptoms: Positive: Constipation, Decreased Appetite, Vomiting. Negative: Fever, Diarrhea - Allergies/Home Medications Allergies/Adverse Reactions: Allergies Allergy/AdvReac Type Severity Reaction Status Date / Time amoxicillin [From Augmentin] Allergy Intermediate Palpitation Verified 03/22/19 18:12 s clavulanic acid Allergy Intermediate Palpitation Verified 03/22/19 18:12 [From Augmentin] s PMH/Surg Hx/FS Hx/Imm Hx Previously Healthy: Yes Endocrine/Hematology History: Denies: Hx Diabetes, Hx Thyroid Disease Cardiovascular History: Reports: Hx Angina, Hx Hypercholesterolemia, Hx Hypertension, Hx Myocardial Infarction Denies: Hx Coronary Artery Disease, Hx Valvular Heart Disease Respiratory History: Reports: Hx Sleep Apnea - uses CPAP @ night @ home Denies: Hx Asthma, Hx Chronic Obstructive Pulmonary Disease (COPD) GI History: Denies: Hx Ulcer Sensory History: Reports: Hx Cataracts Denies: Hx Deafness Opthamlomology History: Reports: Hx Cataracts Psychiatric History: Reports: Hx Panic Disorder - Surgical History Surgery Procedure, Year, and Place: appendectomy 2001, [facility] - Immunization History Date of Tetanus Vaccine: utd Date of Influenza Vaccine: fall 2015 Infectious Disease History: No Infectious Disease History: Denies: Hx Clostridium Difficile, Hx Hepatitis, Hx Human Immunodeficiency Virus (HIV), Hx of Known/Suspected MRSA, Hx Shingles, Hx Tuberculosis, Hx Known/ Suspected VRE, Hx Known/Suspected VRSA, History Other Infectious Disease, Traveled Outside the [place] in Last 30 Days - Family History Known Family History: Positive: Hypertension, Diabetes, Other - colon cancer Negative: Cardiac Disease - Social History Alcohol Use: Occasionally Hx Substance Use: No Substance Use Type: Reports: None Hx Tobacco Use: Yes Smoking Status (MU): Former Smoker Have You Smoked in the Last Year: No Review of Systems Positive: Other - dec. appetite. Negative: Fever Positive: Abdominal Pain, Vomiting, Other - constipation. Negative: Diarrhea Positive: no symptoms reported Positive: Myalgia - bodyache All Other Systems Reviewed And Are Negative: Yes Physical Exam - Summary Physical Exam Summary: Appearance: Obese but generally well appearing middle-aged man in no acute distress Skin: Warm, dry, no obvious rash Eyes: sclera anicteric, no conjunctival pallor ENT: mucous membranes moist, pharynx appears normal Neck: Supple, nontender Respiratory: Clear to auscultation, no signs of respiratory distress Cardiovascular: Normal S1, S2. No murmurs. Normal distal pulses in tibial and radial bilaterally. Abdomen: Soft, nontender, no peritoneal signs, normal active bowel sounds present Musculoskeletal: Normal, Strength/ROM Intact Neurological: A&Ox3, awake and alert, mentation is normal, speech is fluent and appropriate Psychiatric: affect is normal, does not appear anxious or depressed Triage Information Reviewed: Yes Vital Signs On Initial Exam: Initial Vitals Temp Pulse Resp BP Pulse Ox 96.6 F 79 19 146/81 97 03/22/19 18:10 03/22/19 18:10 03/22/19 18:10 03/22/19 18:10 03/22/19 18:10 Vital Signs Reviewed: Yes Procedures - Sedation Patient Received Moderate/Deep Sedation with Procedure: No Diagnostics - Vital Signs Vital Signs Temp Pulse Resp BP Pulse Ox 03/22/19 20:29 97.6 F 77 20 143/85 94 03/22/19 18:10 96.6 F 79 19 146/81 97 - Laboratory Lab Results: Lab Results 03/22/19 03/22/19 03/22/19 Range/Units 20:42 20:42 20:42 WBC 13.5 H (3.5-10.8) 10^3/uL RBC 4.70 (4.18-5.48) 10^6 /uL Hgb 14.6 (14.0-18.0) g/dL Hct 43 (42-52) % MCV 91 (80-94) fL MCH 31 (27-31) pg MCHC 34 (31-36) g/dL RDW 12 (10-15) % Plt Count 356 (150-450) 10^3/uL MPV 7.5 (7.4-10.4) fL Neut % (Auto) 71.3 % Lymph % (Auto) 20.7 % [place] % (Auto) 7.1 % Eos % (Auto) 0.4 % Baso % (Auto) 0.5 % Absolute Neuts (auto) 9.6 H (1.5-7.7) 10^3/ul Absolute Lymphs (auto) 2.8 (1.0-4.8) 10^3/ul Absolute Monos (auto) 1.0 H (0-0.8) 10^3/ul Absolute Eos (auto) 0.1 (0-0.6) 10^3/ul Absolute Basos (auto) 0.1 (0-0.2) 10^3/ul Absolute Nucleated RBC 0.0 10^3/ul Nucleated RBC % 0.0 Sodium 135 (135-145) mmol/L Potassium 4.0 (3.5-5.0) mmol/L Chloride 96 L (101-111) mmol/L Carbon Dioxide 27 (22-32) mmol/L Anion Gap 12 H (2-11) mmol/L BUN 20 (6-24) mg/dL Creatinine 1.24 H (0.67-1.17) mg/dL Est GFR ( Amer) 72.0 (>60) Est GFR (Non-Af Amer) 59.5 (>60) BUN/Creatinine Ratio 16.1 (8-20) Glucose 131 H (70-100) mg/dL Lactic Acid 0.7 (0.5-2.0) mmol/L Calcium 10.8 H (8.6-10.3) mg/dL Total Bilirubin 0.50 (0.2-1.0) mg/dL AST 46 H (13-39) U/L ALT 65 H (7-52) U/L Alkaline Phosphatase 169 H (34-104) U/L C-Reactive Protein 13.00 H (<8.01) mg/L Total Protein 8.0 (6.4-8.9) g/dL Albumin 4.9 (3.2-5.2) g/dL Globulin 3.1 (2-4) g/dL Albumin/Globulin Ratio 1.6 (1-3) Lipase 54 (11.0-82.0) U/L Result Diagrams: 03/23/19 05:18 03/23/19 05:18 Lab Statement: Any lab studies that have been ordered have been reviewed, and results considered in the medical decision making process. Abdominal Pain Male Course/Dx - Course Course Of Treatment: Pt is a 58 y/o M presenting to the ED coming from [facility] to be [place] [facility] [place]. Pt states about 5 days ago woke up around 0500 and vomited violently, then did not vomit again. Since then, hes had mid-lower abd pain, intermittent chills, bodyaches, decreased appetite, and constipation. He denies urinary sx or fevers. Hx appendectomy. On exam, pt is an obese but generally well appearing middle-aged man in no acute distress without peritoneal signs in abd. I spoke with Dr. Gallo at [phone] about the pt's present condition who recomended calling the hospitalist about further admission. I discussed the case with Dr. Greer at [phone] who accepts [place] [facility] [place] - Diagnoses Provider Diagnoses: Partial small bowel obstruction - Provider Notifications Discussed Care Of Patient With: Evelin Greer Time Discussed With Above Provider: 22:42 Instructed by Provider To: Admit As Inpatient Discharge ED - Sign-Out/Discharge Documenting (check all that apply): Patient Departure - Discharge Plan Condition: Stable Disposition: ADMITTED TO [facility] - Billing Disposition and Condition Condition: STABLE Disposition: Admitted to [facility] - Attestation Statements Document Initiated by Marcy: Yes Documenting Scribe: Maryse Cowan Provider For Whom Marcy is Documenting (Include Credential): Ángel Torres MD. Scribe Attestation: Maryse Mccall scribed for Ángel Torres MD. on 03/23/19 at 0622. Scribe Documentation Reviewed: Yes Provider Attestation: The documentation as recorded by the scribeMaryse accurately reflects the service I personally performed and the decisions made by , Ángel Torres MD. Status of Scribe Document: Viewed
[2019-03-22] MEDS ORDERED: Morphine 10 MG/ML VIAL (1 ml) IV ONE (22:27)
[2019-03-22] MEDS ORDERED: Ondansetron INJ* 2 MG/ML VIAL IV ONE (22:27)
[2019-03-22] MEDS: NS 0.9% 1000 ML** 2,000 ML IV ONE (23:30)
[2019-03-22] MEDS ORDERED: Ondansetron INJ* 2 MG/ML VIAL IV PRN (23:52)
[2019-03-23] MEDS: NS 0.9% 1000 ML** 1,000 ML IV SCH ×2 (01:39→13:08)
[2019-03-23] MEDS: NS 0.9% 1000 ML** 2,000 ML IV ONE ×2 (04:06→05:21)
[2019-03-23] MEDS ORDERED: hydrALAZINE IV* 20 MG/ML VIAL IV SLOW PU PRN (04:53)
[2019-03-23 05:52] LABS: ABS Eosinophils 0.1 10^3/ul (0-0.6); ABS Lymphocytes 2.7 10^3/ul (1.0-4.8); ABS Monocytes 0.9 10^3/ul (0-0.8); ABS Neutrophils 5.5 10^3/ul (1.5-7.7); Hematocrit 36 % (42-52); Hemoglobin 12.3 g/dL (14.0-18.0); Lymphocyte % 29.1 %; Mean Corpuscular HGB Conc 35 g/dL (31-36); Mean Corpuscular Hemoglobin 32 pg (27-31); Mean Corpuscular Volume 91 fL (80-94); Mean Platelet Volume 7.5 fL (7.4-10.4); Platelet Count 260 10^3/uL (150-450); Red Blood Count 3.92 10^6 /uL (4.18-5.48); Red Cell Distribution Width 12 % (10-15); White Blood Count 9.1 10^3/uL (3.5-10.8)
--- NOTE | 2019-03-23 05:53 | HP ---
History of Present Illness - History of Present Illness Reason for Visit: SBO History of Present Illness: 58 yo male iwth hx of appendectomy brought in from urgent care for SBO. He has been experiencing abdominal pain for 5 days. He vomited once in the beginning. No BM, not passing flatus. He had a Ct scan at the urgent care showing a partial SBO. Surgery was consulted in the ED and recommended conservative medical management. Pt refused an NG tube. Surgery made aware and was okay with it since he is not vomiting and only has moderate distention. hx of appendectomy. - Past Medical History Cardiac: CAD, HTN, Hyperlipidemia - Past Surgical History Past Surgical History: Appendectomy - Past Family History Family History: Cancer - Past Social History Smoke: No Alcohol: Rare Drugs: None Lives: With Family Review of Systems - Measurements Intake and Output: Intake and Output Last 24 Hours 03/20/19 03/21/19 03/22/19 03/23/19 06:59 06:59 06:59 06:59 Intake Total 2001 Balance 2001 Weight 259 lb 11.2 oz Intake: IV Fluids 2001 NS (0.9%) 1002 Oral 0 Other: # Bowel Movements 0 # Voids 1 - Review of Systems Constitutional Symptoms: Negative: Weight Gain, Weight Loss, Weakness, Fatigue, Fever, Night Sweats, Unexplained Falls, Other Dermatology: Negative: Normal, Rash, Skin Lesions, Cancer, Skin Lumps, Other HEENT: Negative: Normal, Change in Hearing, Vertigo, Dental Problems, Tinnitus, Sinus Problem, Other Eyes: Negative: Normal, Change in Vision, Double Vision, Eye Pain, Glaucoma, Cataract, Contacts or Glasses, Other Thyroid: Negative: Normal, Goiter, Thyroid Nodule, Cold Intolerance, Heat Intolerance , Sweatiness, Tremor, Frequent Defecation, Constipation, Palpitations, Primary Hypothyroidism, Primary Hyperthyroidism, Weight Loss, Weight Gain, Change in Skin/Hair, Change in Menstruation, Radiation Exposure, Other Pulmonary: Negative: Normal, Cough, Sputum, Hemoptysis, Wheezing, Respiratory Distress, Shortness of Breath, COPD, Asthma, Exercise Intolerance, Home Oxygen, Other Cardiology: Negative: Normal, Chest Pain, Shortness of Breath, Palpitations, Swelling of Ankles, Peripheral Vascular Dis, Edema, Faintness, Syncope, Claudication, Proximal NocturnalDyspnea, Orthopnoea, Other Gastroenterology: Positive: Abdominal Pain, Change in Bowel Habits Genital - Urinary: Negative: Normal, Dysuria, Hematuria, Polyuria, Nocturia, Other Musculoskeletal: Negative: Joint Pain, Joint Stiffness, Arthritis, Osteoporosis, Low Back Pain , Sciatica, Joint Deformities, Kyphoscoliosis, Other Endocrinology: Negative: Normal, Thyroid Problems, Adrenal Problems, Gonadal Problems, Family Hx Endocrine Disorders, Obesity, Diabetes Mellitus, Hyperglycemia, Hx Hypoglycemia, Diabetic Foot Ulcers, Calluses, Hirsutism, Menstrual Abnormalities , Polydipsia, Polyuria, Gonadal Problems, Gynecomastia, Pituitary disease, Other Hematologic/Lymphatic: Negative: Anemia, Easy Bruising, Hx Leukemia, Hx Lymphoma, Use of Anticoagulant, Use of Antiplatelet Drugs, Other Neurology: Negative: Normal, Headache, Migraines, Change in Vision, Diplopia, Dizziness , Change in Balancing, Change in Coordination, Change in Memory, Change in Speech, Change in Sphincter Function, Change in Walking, Numbness\Paresthesiae, Unexplained Weakness, Hx of Stroke\TIA, Hx of Seizures, Other Psychiatry: Negative: Normal, Depression, Anxiety, Depressed Mood, Anhedonia, Sexual Dysfunction, Weight Change, Guilt Feelings, Tearfulness, Unusual Fatigue, Unusual Anxiety, Suicidal Ideation, Hypomania, Eating Disorders, Other Objective Active Medications: Hydralazine HCl (Apresoline Iv*) 5 mg IV SLOW PU Q6H PRN PRN Reason: Systolic Bp Greater Than:170 Sodium Chloride (Ns 0.9% 1000 Ml) 1,000 mls @ 125 mls/hr IV PER RATE KENNETH Last Admin: 03/23/19 01:39 Dose: 125 mls/hr Morphine Sulfate (Morphine Inj (Syringe)*) 4 mg IV Q6HR PRN PRN Reason: PAIN - MODERATE Ondansetron HCl (Zofran Inj*) 4 mg IV Q8H PRN PRN Reason: NAUSEA Vital Signs - 8 hr 03/22/19 03/22/19 03/22/19 23:08 23:13 23:15 Temperature Pulse Rate 69 70 Respiratory 17 Rate Blood Pressure 139/80 (mmHg) O2 Sat by Pulse 95 96 Oximetry 03/22/19 03/22/19 03/22/19 23:23 23:38 23:45 Temperature 98.1 F Pulse Rate 70 67 66 Respiratory 15 Rate Blood Pressure 139/80 129/74 (mmHg) O2 Sat by Pulse 96 92 92 Oximetry 03/23/19 03/23/19 03/23/19 00:00 00:15 00:45 Temperature Pulse Rate 63 68 73 Respiratory Rate Blood Pressure 123/78 120/68 (mmHg) O2 Sat by Pulse 91 89 94 Oximetry 03/23/19 03/23/19 03/23/19 01:00 01:01 01:15 Temperature 98.1 F Pulse Rate 62 58 62 Respiratory 16 Rate Blood Pressure 124/66 123/73 (mmHg) O2 Sat by Pulse 91 94 92 Oximetry 03/23/19 01:50 Temperature 98.1 F Pulse Rate 87 Respiratory 17 Rate Blood Pressure 123/73 (mmHg) O2 Sat by Pulse 96 Oximetry Oxygen Devices in Use Now: None, CPAP Appearance: not in distress Ears/Nose/Mouth/Throat: Clear Oropharnyx, Mucous Membranes Moist Neck: NL Appearance and Movements; NL JVP, Trachea Midline Respiratory: Symmetrical Chest Expansion and Respiratory Effort, Clear to Auscultation, Clear to Percussion Cardiovascular: NL Sounds; No Murmurs; No JVD Abdominal: - - hyperactive BS, distention, some tenderness on palpation Lymphatic: No Cervical Adenopathy Skin: No Rash or Ulcers Neurological: Alert and Oriented x 3, NL Sensation, NL Muscle Strength and Tone Result Diagrams: 03/22/19 20:42 03/22/19 20:42 Additional Lab and Data: Lab Results 03/22/19 03/22/19 03/22/19 Range/Units 20:42 20:42 20:42 WBC 13.5 H (3.5-10.8) 10^3/uL RBC 4.70 (4.18-5.48) 10^6 /uL Hgb 14.6 (14.0-18.0) g/dL Hct 43 (42-52) % MCV 91 (80-94) fL MCH 31 (27-31) pg MCHC 34 (31-36) g/dL RDW 12 (10-15) % Plt Count 356 (150-450) 10^3/uL MPV 7.5 (7.4-10.4) fL Neut % (Auto) 71.3 % Lymph % (Auto) 20.7 % [place] % (Auto) 7.1 % Eos % (Auto) 0.4 % Baso % (Auto) 0.5 % Absolute Neuts (auto) 9.6 H (1.5-7.7) 10^3/ul Absolute Lymphs (auto) 2.8 (1.0-4.8) 10^3/ul Absolute Monos (auto) 1.0 H (0-0.8) 10^3/ul Absolute Eos (auto) 0.1 (0-0.6) 10^3/ul Absolute Basos (auto) 0.1 (0-0.2) 10^3/ul Absolute Nucleated RBC 0.0 10^3/ul Nucleated RBC % 0.0 Sodium 135 (135-145) mmol/L Potassium 4.0 (3.5-5.0) mmol/L Chloride 96 L (101-111) mmol/L Carbon Dioxide 27 (22-32) mmol/L Anion Gap 12 H (2-11) mmol/L BUN 20 (6-24) mg/dL Creatinine 1.24 H (0.67-1.17) mg/dL Est GFR ( Amer) 72.0 (>60) Est GFR (Non-Af Amer) 59.5 (>60) BUN/Creatinine Ratio 16.1 (8-20) Glucose 131 H (70-100) mg/dL Lactic Acid 0.7 (0.5-2.0) mmol/L Calcium 10.8 H (8.6-10.3) mg/dL Total Bilirubin 0.50 (0.2-1.0) mg/dL AST 46 H (13-39) U/L ALT 65 H (7-52) U/L Alkaline Phosphatase 169 H (34-104) U/L C-Reactive Protein 13.00 H (<8.01) mg/L Total Protein 8.0 (6.4-8.9) g/dL Albumin 4.9 (3.2-5.2) g/dL Globulin 3.1 (2-4) g/dL Albumin/Globulin Ratio 1.6 (1-3) Lipase 54 (11.0-82.0) U/L Assess/Plan/Problems-Billing Assessment: - Patient Problems (1) Partial small bowel obstruction Current Visit: Yes Status: Acute Code(s): K56.600 - PARTIAL INTESTINAL OBSTRUCTION, UNSPECIFIED TO CAUSE SNOMED Code(s): 230971892 Comment: has hx of appendectomy he presented with abdominal pain, found to have partial SBO surgery was consulted NPO (2) HTN (hypertension) Current Visit: Yes Status: Acute Code(s): I10 - ESSENTIAL (PRIMARY) HYPERTENSION SNOMED Code(s): 72372717 Comment: holding home meds PRN hydralazine (3) HLD (hyperlipidemia) Current Visit: Yes Status: Acute Code(s): E78.5 - HYPERLIPIDEMIA, UNSPECIFIED SNOMED Code(s): 43522060 (4) CAD (coronary artery disease) Current Visit: Yes Status: Acute Code(s): I25.10 - ATHSCL HEART DISEASE OF [place] CORONARY ARTERY W/O ANG PCTRS SNOMED Code(s): 95980797 Comment: 2 stents placed 2 years ago (5) DVT prophylaxis Current Visit: Yes Status: Acute Code(s): Z29.9 - ENCOUNTER FOR PROPHYLACTIC MEASURES, UNSPECIFIED SNOMED Code(s): 303360563 Comment: heparin sc (6) Full code status Current Visit: Yes Status: Acute Code(s): Z78.9 - OTHER SPECIFIED HEALTH STATUS SNOMED Code(s): 190316303
[2019-03-23 05:59] LABS: CO2 Carbon Dioxide 20 mmol/L (22-32); Calcium 8.5 mg/dL (8.6-10.3); Chloride 101 mmol/L (101-111); Sodium 132 mmol/L (135-145)
[2019-03-23 06:04] LABS: Blood Urea Nitrogen 16 mg/dL (6-24); EGFR African American 105.5 (>60); EGFR Non-African American 87.2 (>60); Glucose 121 mg/dL (70-100)
[2019-03-23 06:12] LABS: Anion Gap 11 mmol/L (2-11)
[2019-03-23 06:58] LABS: Magnesium 1.8 mg/dL (1.9-2.7); Potassium Redraw 3.8 mmol/L (3.5-5.0)
--- NOTE | 2019-03-23 07:44 | PN ---
Subjective Date of Service: 03/23/19 Interval History: HD1 on 03/23 58M PMH HAYLEY, GERD, CAD s/p PCI, HTN, who presented with partial SBO, being mgnd conservatively. VSS, labs with mild hypoNA and low mag otherwsie stable, mild dilutional anemia This morning, no acute complaints other than distention, pain managed, reports intermittent small flatus and no BM since . We discuss holding diet, he denies nausea or vomiting. Surgery following, we discuss watchful waiting. Objective Active Medications: Heparin Sodium (Porcine) (Heparin Vial(*)) 5,000 units SUBCUT Q12HR KENNETH Hydralazine HCl (Apresoline Iv*) 5 mg IV SLOW PU Q6H PRN PRN Reason: Systolic Bp Greater Than:170 Sodium Chloride (Ns 0.9% 1000 Ml) 1,000 mls @ 125 mls/hr IV PER RATE [facility] Last Admin: 03/23/19 01:39 Dose: 125 mls/hr Morphine Sulfate (Morphine Inj (Syringe)*) 4 mg IV Q6HR PRN PRN Reason: PAIN - MODERATE Ondansetron HCl (Zofran Inj*) 4 mg IV Q8H PRN PRN Reason: NAUSEA Vital Signs - 8 hr 03/22/19 03/23/19 03/23/19 23:45 00:00 00:15 Temperature Pulse Rate 66 63 68 Respiratory Rate Blood Pressure 129/74 123/78 (mmHg) O2 Sat by Pulse 92 91 89 Oximetry 03/23/19 03/23/19 03/23/19 00:45 01:00 01:01 Temperature 98.1 F Pulse Rate 73 62 58 Respiratory 16 Rate Blood Pressure 120/68 124/66 (mmHg) O2 Sat by Pulse 94 91 94 Oximetry 03/23/19 03/23/19 01:15 01:50 Temperature 98.1 F Pulse Rate 62 87 Respiratory 17 Rate Blood Pressure 123/73 123/73 (mmHg) O2 Sat by Pulse 92 96 Oximetry Oxygen Devices in Use Now: None, CPAP Appearance: Pleasant in NAD Eyes: No Scleral Icterus Ears/Nose/Mouth/Throat: NL Teeth, Lips, Gums Neck: NL Appearance and Movements; NL JVP Respiratory: Clear to Auscultation Cardiovascular: NL Sounds; No Murmurs; No JVD, RRR Abdominal: - - Distended but soft, hyperactive BS in upper quad, quiet in lower. No TTP Lymphatic: No Cervical Adenopathy Extremities: No Edema Skin: No Rash or Ulcers Neurological: Alert and Oriented x 3 Result Diagrams: 03/23/19 05:18 03/23/19 06:28 Additional Lab and Data: Lab Results Diagnostic Imagin03/22/19: CT Scan-Done at . Partial SBO noted with decompression past transition point, vasectomy clips seen and other stigmata of prior surgery. Assess/Plan/Problems-Billing Assessment: 58M PMH HAYLEY, GERD, CAD s/p PCI, HTN, who presented with partial SBO, being mgnd conservatively. - Patient Problems (1) Partial small bowel obstruction Current Visit: Yes Status: Acute Code(s): K56.600 - PARTIAL INTESTINAL OBSTRUCTION, UNSPECIFIED TO CAUSE SNOMED Code(s): 743958892 Comment: -No evidence for urgent surgical evaluation, though no improvement in sx since -Does have appenectomy hx -IVF @ 125cc/hr, NPO, continue for now, frequent ambulation (2) HAYLEY (obstructive sleep apnea) Current Visit: Yes Status: Acute Code(s): G47.33 - OBSTRUCTIVE SLEEP APNEA ( ADULT) (PEDIATRIC) SNOMED Code(s): 90623465 Comment: -CPAP (3) HTN (hypertension) Current Visit: Yes Status: Acute Code(s): I10 - ESSENTIAL (PRIMARY) HYPERTENSION SNOMED Code(s): 57940843 Comment: -holding oral home meds -PRN hydralazine (4) CAD (coronary artery disease) Current Visit: Yes Status: Acute Code(s): I25.10 - ATHSCL HEART DISEASE OF [place] CORONARY ARTERY W/O ANG PCTRS SNOMED Code(s): 61866825 Comment: -On statin, asa at baseline currently held on NPO status, no active issues (5) DVT prophylaxis Current Visit: Yes Status: Acute Code(s): Z29.9 - ENCOUNTER FOR PROPHYLACTIC MEASURES, UNSPECIFIED SNOMED Code(s): 373119191 Comment: -SQH (6) Full code status Current Visit: Yes Status: Acute Code(s): Z78.9 - OTHER SPECIFIED HEALTH STATUS SNOMED Code(s): 509474078 Status and Disposition: Pending clinical improvement Diet NPO No need for PT or OT
[2019-03-23] MEDS: Heparin VIAL(*) 5000 UNITS/ML VIAL (FIVE THOUSAND) SUBCUT SCH ×2 (09:09→21:06)
--- NOTE | 2019-03-23 09:47 | PN ---
Progress Note - Progress Note Date of Service: 03/23/19 SOAP: Subjective: [] Mr. Garcia is a pleasant 58 yo male with complaint of nausea, vomiting and diffuse abdominal pain that began 5 days prior. Pt states that nausea and vomiting had resolved after one episode but his abdominal pain persisted. After several days of abdominal pain, Pt presented to Urgent care and a PSBO was demonstrated on CT imaging. Pt then arrived in the ED yesterday with complaints of body ache, chills, and constipation. Pt admits to past surgical history of appendectomy due to rupture 15 years prior. Pt denies previous episodes of SBO. Pt reports mild pain at rest. States pain has improved since yesterday. He has not required analgesia. He tells me that his distension is without improvement. No current nausea or vomiting. Pt states he is passing small amounts of flatus intermittently. No BM since onset of symptoms 5 days ago. Urinating without difficulty, no blood in urine. Pt is currently NPO and receiving IVF. Pt declined NGT. Currently receiving conservative management of symptoms. He denies fever, fatigue, chest pain & SOB. Objective: [] Vital Signs - 12 hr Temp Pulse Resp BP Pulse Ox 03/23/19 01:50 98.1 F 87 17 123/73 96 03/23/19 01:15 62 123/73 92 03/23/19 01:01 98.1 F 58 16 124/66 94 03/23/19 01:00 62 91 03/23/19 00:45 73 120/68 94 03/23/19 00:15 68 123/78 89 03/23/19 00:00 63 91 03/22/19 23:45 66 129/74 92 03/22/19 23:38 67 92 03/22/19 23:23 98.1 F 70 15 139/80 96 03/22/19 23:15 70 139/80 96 03/22/19 23:13 69 95 03/22/19 23:08 17 Intake & Output 03/22/19 03/23/19 03/23/19 22:59 06:59 14:59 Intake Total 2001 0 Balance 2001 0 Weight 255 lb 259 lb 11.2 oz Intake: IV Fluids 2001 NS (0.9%) 1002 Oral 0 0 Other: # Bowel Movements 0 # Voids 1 Abnormal Lab Results 03/22/19 03/22/1919 20:42 20:42 20:42 WBC 13.5 H RBC 4.70 Hgb 14.6 Hct 43 MCV 91 MCH 31 MCHC 34 RDW 12 Plt Count 356 MPV 7.5 Neut % (Auto) 71.3 Lymph % (Auto) 20.7 [place] % (Auto) 7.1 Eos % (Auto) 0.4 Baso % (Auto) 0.5 Absolute Neuts (auto) 9.6 H Absolute Lymphs (auto) 2.8 Absolute Monos (auto) 1.0 H Absolute Eos (auto) 0.1 Absolute Basos (auto) 0.1 Absolute Nucleated RBC 0.0 Nucleated RBC % 0.0 Sodium 135 Potassium 4.0 Chloride 96 L Carbon Dioxide 27 Anion Gap 12 H BUN 20 Creatinine 1.24 H Est GFR ( Amer) 72.0 Est GFR (Non-Af Amer) 59.5 BUN/Creatinine Ratio 16.1 Glucose 131 H Lactic Acid 0.7 Calcium 10.8 H Magnesium Total Bilirubin 0.50 AST 46 H ALT 65 H Alkaline Phosphatase 169 H C-Reactive Protein 13.00 H Total Protein 8.0 Albumin 4.9 Globulin 3.1 Albumin/Globulin Ratio 1.6 Lipase 54 03/23/19 03/23/19 03/23/19 05:18 05:18 06:28 WBC 9.1 RBC 3.92 L Hgb 12.3 L Hct 36 L MCV 91 MCH 32 H MCHC 35 RDW 12 Plt Count 260 MPV 7.5 Neut % (Auto) 60.1 Lymph % (Auto) 29.1 [place] % (Auto) 9.4 Eos % (Auto) 1.0 Baso % (Auto) 0.4 Absolute Neuts (auto) 5.5 Absolute Lymphs (auto) 2.7 Absolute Monos (auto) 0.9 H Absolute Eos (auto) 0.1 Absolute Basos (auto) 0.0 Absolute Nucleated RBC 0.0 Nucleated RBC % 0.0 Sodium 132 L Potassium TNP 3.8 Chloride 101 Carbon Dioxide 20 L Anion Gap 11 BUN 16 Creatinine 0.89 Est GFR ( Amer) 105.5 Est GFR (Non-Af Amer) 87.2 BUN/Creatinine Ratio 18.0 Glucose 121 H Lactic Acid Calcium 8.5 L Magnesium TNP 1.8 L Total Bilirubin AST ALT Alkaline Phosphatase C-Reactive Protein Total Protein Albumin Globulin Albumin/Globulin Ratio Lipase Abdominal CT Impression (03/22/19): CT consistent with partial small bowel obstruction with a transition point potential identified at the right of mid line mid-level abdomen Examination: General: NAD, resting in bed comfortably. Pulmonary: CTA throughout. No wheezes, rales or rhonchi. Cardiovascular: Regular rate and rhythm. No murmur, rubs or gallops. Abdomen: +Hypoactive bowel sounds. Moderately distended & tympanitic to percussion. Describes feeling of pressure with palpation in all four quadrants, non-tender. Skin: Warm and dry. No erythema, rash or edema. Peripheral Vascular: Radial & pedal pulses 2+ b/l. Capillary refill <2 seconds b /l. Calves soft and non-tender b/l. No peripheral edema Assessment: [] PSBO, abdominal pain x 5 days with improvement in pain since yesterday. +flatus , -BM. Remains distended. No immediate surgical concerns. Pt is afebrile, without tachycardia/tachypnea, no current leukocytosis, no free air on CT. Plan: [] Remains NPO with IVF. Encourage frequent ambulation. Continue conservative management at this time. Repeat CBC in AM.
--- NOTE | 2019-03-23 12:36 | PN ---
Progress Note - Progress Note Date of Service: 03/23/19 Note: Surgery Progress Note Please see full dictated consultation note from TIO Aquino. Briefly, patient is a 58 yo M with a history of an exploratory surgery for a ruptured appendicitis who presents with abdominal distension and decreased BM/flatus since last Friday. He has been tolerated CLD at home but says he cannot take much solid. He has never vomited. He is intermittently passing flatus. I reviewed his vitals, labs and imaging. CT abdomen pelvis shows some distended loops of bowels and a likely transition point in the RLQ. On physical exam today his abdomen was distended, non tender with decreased bowel sounds. Patient has at least a partial SBO. Recommend continuing conservative management and NPO with IVF. His stomach is not distended on CT and he is not having emesis so an NGT is not necessary. Hopefully he will have a return of bowel function with bowel rest. Surgery will continue to follow.
--- NOTE | 2019-03-23 18:25 | PN ---
Hospitalist Progress Note Date of Service: 03/23/19 Pt requesting diet, says has been feeling well all day, eager to be d/c, will trial clears
[2019-03-23] MEDS: Morphine INJ* 4 MG/ML 1 ML SYRINGE (NEW SYRINGE VERSION) IV PRN (21:06)
--- NOTE | 2019-03-23 23:40 | CONS ---
CC: Dr. Tate Vuong * SURGICAL CONSULT NOTE: DATE OF CONSULT: 03/23/19 TIME: At approximately 0830. ATTENDING SURGEON: Dr. Nida Gallo. CHIEF COMPLAINT: Abdominal pain. HISTORY OF PRESENT ILLNESS: This is a 58-year-old male who Friday evening of last week (03/17/19) experienced some sharp abdominal pain that was associated with chills and diaphoresis and generalized flu-like symptoms. He had 1 episode of vomiting morning, but none since. He continued to have mid to lower abdominal pain from Friday through Friday with decreased appetite, though he was able to tolerate some liquids. He went to work Friday, but then left work and presented [facility] where[facility] a [facility] scan was performed and he was then referred to the [facility] ED for what appeared to be a partial small bowel obstruction. He states that other than morning's episode of emesis, he has not had any ongoing nausea or vomiting. At peak, his pain had been as high as 8/10, though at present he reports only a "tiny amount of pain." His last bowel movement was last and described as otherwise normal without blood. He has not had any symptoms. His most recent colonoscopy was in January of 2019, which he states was a normal study. He has not had any prior similar symptoms of bowel obstruction. He is status post exploratory laparotomy with appendectomy for ruptured appendicitis approximately 15 years ago. The patient has continued to pass small amounts of gas, but no further bowel movements since last . PAST MEDICAL HISTORY: Significant for coronary artery disease, status post NM 2 years ago with PCI and stent placement x2. He is treated for hypertension at present as well as obstructive sleep apnea (with CPAP). PAST SURGICAL HISTORY: Previous surgeries are as described. I believe he has also undergone prior cataract surgery. HOME MEDICATIONS: Include: 1. Diltiazem. 2. Rosuvastatin. 3. Pantoprazole. 4. Spironolactone. 5. Baby aspirin daily. DRUG ALLERGIES: Noted in his H and P. FAMILY HISTORY: As noted in his admission history and physical. SOCIAL HISTORY: As noted in his admission history and physical. REVIEW OF SYSTEMS: No additions to the HPI. See also history and physical. PHYSICAL EXAM: Height 5 feet 10 inches, weight 259 pounds. Temperature 98.6 with max last night of 99, blood pressure 112/62, pulse 53, respirations 20. General: Well-nourished, somewhat obese male, in no acute distress. He appears comfortable lying on the bed. Skin: Warm and dry. No suspicious rashes or lesions. HEENT: Unremarkable. Heart: Regular rate and rhythm. No murmur noted. Lungs: Clear to auscultation. No rales or wheezes. Abdomen: Obese, but somewhat protuberant. Well-healed right lower quadrant transverse incision. Bowel sounds present, but somewhat hypoactive. Abdomen is soft with very mild nonlocalized tenderness in both lower quadrants. Upper abdomen is without pain, though the patient does note pressure. No palpable hernias or masses. Extremities: No edema. Neurological: Grossly intact. DIAGNOSTIC STUDIES/LAB DATA: Initial white blood cell count 13,500 with repeat this morning of 9.1 with a normal differential. Initial hemoglobin 14.6, repeat 12.3. Initial and repeat electrolytes are essentially normal. Creatinine initially 1.24 with a repeat 0.89. Liver function tests mildly elevated from either mild baseline elevation or normal (see labs). Initial calcium mildly elevated at 10.8 with repeat of 8.5. CRP initially 13. Lipase normal at 54. CT scan, which was reviewed personally and from my recollection, was IV contrast only, does show multiple moderately dilated small bowel loops with some decompressed distal small bowel loops. Colon has stool and gas present. No significant free fluid or evidence of free air. No inflammatory changes. IMPRESSION: Likely partial small bowel obstruction, stable. There are no concerning signs or symptoms at this point to indicate urgent surgical intervention. PLAN: Agree with current period of relative bowel rest, IV hydration, and close serial abdominal exams. We will continue to follow while he is an inpatient. The patient understands the potential need for surgery, though this is not anticipated at the present time. Case was discussed with Dr. Nida Gallo. TIO COX [id number]/[facility] #: [id number] MTDFabby
[2019-03-24] MEDS: Morphine INJ* 4 MG/ML 1 ML SYRINGE (NEW SYRINGE VERSION) IV PRN (03:32)
[2019-03-24 05:09] LABS: ABS Eosinophils 0.1 10^3/ul (0-0.6); ABS Lymphocytes 1.8 10^3/ul (1.0-4.8); ABS Monocytes 0.7 10^3/ul (0-0.8); ABS Neutrophils 6.4 10^3/ul (1.5-7.7); Eosinophil % 0.9 %; Hematocrit 37 % (42-52); Hemoglobin 12.7 g/dL (14.0-18.0); Lymphocyte % 19.9 %; Mean Corpuscular HGB Conc 35 g/dL (31-36); Mean Corpuscular Hemoglobin 31 pg (27-31); Mean Corpuscular Volume 90 fL (80-94); Mean Platelet Volume 7.3 fL (7.4-10.4); Platelet Count 286 10^3/uL (150-450); Red Blood Count 4.06 10^6 /uL (4.18-5.48); Red Cell Distribution Width 12 % (10-15)
[2019-03-24 05:23] LABS: BUN/Creatinine Ratio 14.4 (8-20); Calcium 9.5 mg/dL (8.6-10.3); EGFR African American 95.5 (>60); EGFR Non-African American 78.9 (>60); Potassium 3.5 mmol/L (3.5-5.0)
--- NOTE | 2019-03-24 07:00 | PN ---
Subjective Date of Service: 03/24/19 Interval History: HD2 on 03/24 58M PMH HAYLEY, GERD, CAD s/p PCI, HTN, who presented with partial SBO, being mgnd conservatively. VSS, labs with continued dilutional anemia but stable. Overnight advanced to clears diet, but pt c/o distention and pain, did get IV morphine. Now back to NPO This morning, no new complaints, frustrated with no real clinical improvement, still feels distended and with pressure but no rachna pain at rest. No flatus or BM, denies fevers or chills, HARDING, N/V, MSK or complaints. Objective Active Medications: Heparin Sodium (Porcine) (Heparin Vial(*)) 5,000 units SUBCUT Q12HR [facility] Last Admin: 03/23/19 21:06 Dose: 5,000 units Hydralazine HCl (Apresoline Iv*) 5 mg IV SLOW PU Q6H PRN PRN Reason: Systolic Bp Greater Than:170 Sodium Chloride (Ns 0.9% 1000 Ml) 1,000 mls @ 125 mls/hr IV PER RATE [facility] Stop: 03/25/19 07:44 Last Admin: 03/23/19 13:08 Dose: 125 mls/hr Morphine Sulfate (Morphine Inj (Syringe)*) 4 mg IV Q6HR PRN PRN Reason: PAIN - MODERATE Last Admin: 03/24/19 03:32 Dose: 4 mg Ondansetron HCl (Zofran Inj*) 4 mg IV Q8H PRN PRN Reason: NAUSEA Vital Signs - 8 hr 03/23/19 03/24/19 03/24/19 23:15 03:32 03:45 Temperature 97.4 F 96.8 F Pulse Rate 58 91 Respiratory 18 18 16 Rate Blood Pressure 145/75 152/85 (mmHg) O2 Sat by Pulse 96 94 Oximetry 03/24/19 05:00 Temperature Pulse Rate Respiratory 16 Rate Blood Pressure (mmHg) O2 Sat by Pulse Oximetry Oxygen Devices in Use Now: None, CPAP Appearance: Pleasant man in NAD Eyes: No Scleral Icterus Ears/Nose/Mouth/Throat: NL Teeth, Lips, Gums Neck: NL Appearance and Movements; NL JVP Respiratory: Symmetrical Chest Expansion and Respiratory Effort, Clear to Auscultation Cardiovascular: NL Sounds; No Murmurs; No JVD, RRR Abdominal: - - Distended obese, hypoactive in lower quadrants, hyperactive in upper, TTP only with deep in blt lower quadrants, no rebound or gaurding Lymphatic: No Cervical Adenopathy Extremities: No Edema Skin: No Rash or Ulcers Neurological: Alert and Oriented x 3 Result Diagrams: 03/24/19 04:41 03/24/19 04:41 Additional Lab and Data: Lab Results Diagnostic Imagin03/22/19: CT Scan-Done at . Partial SBO noted with decompression past transition point, vasectomy clips seen and other stigmata of prior surgery. Assess/Plan/Problems-Billing Assessment: 58M PMH HAYLEY, GERD, CAD s/p PCI, HTN, who presented with partial SBO, being mgnd conservatively, with no sign of improvement. - Patient Problems (1) Partial small bowel obstruction Current Visit: Yes Status: Acute Code(s): K56.600 - PARTIAL INTESTINAL OBSTRUCTION, UNSPECIFIED TO CAUSE SNOMED Code(s): 910018837 Comment: -No improvement in sx since -Does have appenectomy hx -IVF @ 125cc/hr, NPO, trialed clears last night on 03/23 PM, did have pain and distention, return to NPO for now, frequent ambulation -Appreciate surgery input, appears to not be responding (2) HAYLEY (obstructive sleep apnea) Current Visit: Yes Status: Acute Code(s): G47.33 - OBSTRUCTIVE SLEEP APNEA ( ADULT) (PEDIATRIC) SNOMED Code(s): 55458816 Comment: -CPAP (3) HTN (hypertension) Current Visit: Yes Status: Acute Code(s): I10 - ESSENTIAL (PRIMARY) HYPERTENSION SNOMED Code(s): 97078885 Comment: -holding oral home meds -PRN hydralazine (4) CAD (coronary artery disease) Current Visit: Yes Status: Acute Code(s): I25.10 - ATHSCL HEART DISEASE OF [place] CORONARY ARTERY W/O ANG PCTRS SNOMED Code(s): 84301891 Comment: -On statin, asa at baseline currently held on NPO status, no active issues (5) Elevated LFTs Current Visit: Yes Status: Acute Code(s): R94.5 - ABNORMAL RESULTS OF LIVER FUNCTION STUDIES SNOMED Code(s): 983428204 Comment: -Mild, can be followed as outpt, probably LOMAX (6) DVT prophylaxis Current Visit: Yes Status: Acute Code(s): Z29.9 - ENCOUNTER FOR PROPHYLACTIC MEASURES, UNSPECIFIED SNOMED Code(s): 663378943 Comment: -SQH (7) Full code status Current Visit: Yes Status: Acute Code(s): Z78.9 - OTHER SPECIFIED HEALTH STATUS SNOMED Code(s): 567368221 Status and Disposition: Pending clinical improvement, conservative mgmt failing Diet NPO No need for PT or OT
[2019-03-24] MEDS: Heparin VIAL(*) 5000 UNITS/ML VIAL (FIVE THOUSAND) SUBCUT SCH ×2 (10:05→20:20)
[2019-03-24] MEDS: NS 0.9% 1000 ML** 1,000 ML IV SCH (10:05)
--- NOTE | 2019-03-24 12:37 | PN ---
Progress Note - Progress Note Date of Service: 03/24/19 Note: Surgery Progress Note S: Patient denies pain. He has had a small amount of flatus. He complaints of left knee pain. He is somewhat frustrated that he has not improved. O: Vital Signs - 24 hr 03/23/19 03/23/19 03/23/19 15:15 19:55 20:00 Temperature 98.7 F 98.0 F Pulse Rate 52 60 Respiratory 20 20 20 Rate Blood Pressure 123/63 144/63 (mmHg) O2 Sat by Pulse 96 95 Oximetry 03/23/19 03/23/19 03/23/19 21:06 22:51 23:15 Temperature 97.4 F Pulse Rate 58 Respiratory 18 18 18 Rate Blood Pressure 145/75 (mmHg) O2 Sat by Pulse 96 Oximetry 03/24/19 03/24/19 03/24/19 03:32 03:45 05:00 Temperature 96.8 F Pulse Rate 91 Respiratory 18 16 16 Rate Blood Pressure 152/85 (mmHg) O2 Sat by Pulse 94 Oximetry Laboratory Results - last 24 hr 03/24/19 03/24/19 04:41 04:41 WBC 9.0 RBC 4.06 L Hgb 12.7 L Hct 37 L MCV 90 MCH 31 MCHC 35 RDW 12 Plt Count 286 MPV 7.3 L Neut % (Auto) 71.3 Lymph % (Auto) 19.9 [place] % (Auto) 7.5 Eos % (Auto) 0.9 Baso % (Auto) 0.4 Absolute Neuts (auto) 6.4 Absolute Lymphs (auto) 1.8 Absolute Monos (auto) 0.7 Absolute Eos (auto) 0.1 Absolute Basos (auto) 0.0 Absolute Nucleated RBC 0.0 Nucleated RBC % 0.0 Sodium 136 Potassium 3.5 Chloride 100 L Carbon Dioxide 26 Anion Gap 10 BUN 14 Creatinine 0.97 Est GFR ( Amer) 95.5 Est GFR (Non-Af Amer) 78.9 BUN/Creatinine Ratio 14.4 Glucose 123 H Calcium 9.5 Intake & Output 03/23/19 03/24/19 03/24/19 22:59 06:59 14:59 Intake Total 450 0 0 Balance 450 0 0 Intake: IV Fluids 200 0 NS (0.9%) 200 0 Oral 250 0 0 Other: Estimated Void Large # Bowel Movements 0 # Voids 3 Physical exam: Abdomen: distended, non tender A/P: 58 M with SBO, likely partial as he continues to have a small amount of flatus but no significant clinical improvement on HD 2. - Recommend AXR tomorrow - Continue NPO - OOB and ambulate - I discussed with the patient that if he fails to improve he may require surgery. We will re assess tomorrow
--- NOTE | 2019-03-24 12:43 | PN ---
Progress Note - Progress Note Date of Service: 03/24/19 SOAP: Subjective: NAD reports no flatus or BM denies BM x several days, denies vomiting. Wants surgery [] Objective: Vital Signs Temp 96.8 F 03/24/19 03:45 Pulse 91 03/24/19 03:45 Resp 16 03/24/19 05:00 BP 152/85 03/24/19 03:45 Pulse Ox 94 03/24/19 03:45 Intake & Output 03/23/19 03/24/19 03/24/19 18:59 06:59 18:59 Intake Total 900 200 0 Balance 900 200 0 Intake: IV Fluids 650 200 NS (0.9%) 650 200 Oral 250 0 0 Other: Estimated Void Large Large Date of Last Bowel [id number] Movement # Bowel Movements 0 0 # Voids 1 3 PEX: Gen: NAD Chest: CTA B/L CVS: RRR Abd: distended but soft, tympanic, non tender Est:calves soft, non tender [] Assessment:58 yo male with PSBO, no flatus, BM or vomiting. currently being treated conservatively [] Plan: patient is requesting surgery. I suggested the use of an NG tube which patient refused. would consider follow up CT with oral contrast. above d/w dr holt []
--- NOTE | 2019-03-24 15:14 | PN ---
Hospitalist Progress Note Date of Service: 03/24/19 Update: Pt with small BM, we discuss continued ambulation and retrial clears He also has c/o knee pain R sided anterior, denies trauma, dull achy, slightly warm to touch On exam Well appearing CTABL RRR no MRG Belly soft NT ND R knee with mild anterior knee swelling, FROM, TTP at anterior aspect, warm without erythema, no ballotment A/P #Partial SBO, now with BM, advance diet as tolerated, may be resolving #R anterior knee pain: Ddx gout, crystalopathy, infectious, no clear pocket to tap, will trial toradol and ice and CTM, check UA tomorrow with AM labs
[2019-03-24] MEDS: Ketorolac INJ* 30 MG/ML 1 ML VIAL IV PUSH PRN (17:20)
[2019-03-25 06:44] LABS: ABS Basophils 0.1 10^3/ul (0-0.2); ABS Eosinophils 0.1 10^3/ul (0-0.6); ABS Lymphocytes 1.6 10^3/ul (1.0-4.8); ABS Monocytes 0.7 10^3/ul (0-0.8); ABS Neutrophils 7.3 10^3/ul (1.5-7.7); Eosinophil % 1.3 %; Hematocrit 38 % (42-52); Hemoglobin 13.3 g/dL (14.0-18.0); Lymphocyte % 16.2 %; Mean Corpuscular HGB Conc 35 g/dL (31-36); Mean Corpuscular Hemoglobin 32 pg (27-31); Mean Corpuscular Volume 91 fL (80-94); Mean Platelet Volume 7.5 fL (7.4-10.4); Nucleated Red Blood Cells % 0.1; Platelet Count 287 10^3/uL (150-450); Red Blood Count 4.15 10^6 /uL (4.18-5.48); Red Cell Distribution Width 12 % (10-15); White Blood Count 9.8 10^3/uL (3.5-10.8)
[2019-03-25 06:55] LABS: Potassium 3.9 mmol/L (3.5-5.0)
--- NOTE | 2019-03-25 07:02 | PN ---
Subjective Date of Service: 03/25/19 Interval History: HD3 on 03/25 58M PMH HAYLEY, GERD, CAD s/p PCI, HTN, who presented with partial SBO, spontaneously resolving! VSS, labs with continued dilutional anemia but stable. Overnight and yesterday pt had 4 small loose BM, advanced diet to soft Also c/o knee pain R (anterior) yesterday that started spontaneously, treating conservatively. This morning, pt doing well had loose stool overnight, no further belly pain, tolerated soft diet. C/o knee pain, better with NSAID and ice, uric acid elevated we discussed likely gout, he prefers prednisone for treatment. No CP SOB complaints. Describess stools as loose but not foul smelling or abnromal color. Objective Active Medications: Heparin Sodium (Porcine) (Heparin Vial(*)) 5,000 units SUBCUT Q12HR [facility] Last Admin: 03/24/19 20:20 Dose: 5,000 units Hydralazine HCl (Apresoline Iv*) 5 mg IV SLOW PU Q6H PRN PRN Reason: Systolic Bp Greater Than:170 Sodium Chloride (Ns 0.9% 1000 Ml) 1,000 mls @ 125 mls/hr IV PER RATE [facility] Stop: 03/25/19 07:44 Last Admin: 03/24/19 10:05 Dose: 125 mls/hr Ketorolac Tromethamine (Toradol Inj*) 30 mg IV PUSH Q6H PRN PRN Reason: PAIN - MODERATE Last Admin: 03/24/19 17:20 Dose: 30 mg Morphine Sulfate (Morphine Inj (Syringe)*) 4 mg IV Q6HR PRN PRN Reason: PAIN - MODERATE Last Admin: 03/24/19 03:32 Dose: 4 mg Ondansetron HCl (Zofran Inj*) 4 mg IV Q8H PRN PRN Reason: NAUSEA Vital Signs - 8 hr 03/24/19 03/25/19 23:15 03:15 Temperature 97 F 97.8 F Pulse Rate 56 58 Respiratory 18 18 Rate Blood Pressure 152/78 157/77 (mmHg) O2 Sat by Pulse 97 94 Oximetry Oxygen Devices in Use Now: None, CPAP Appearance: Pleasant man in NAD Eyes: No Scleral Icterus Ears/Nose/Mouth/Throat: NL Teeth, Lips, Gums, Clear Oropharnyx Neck: NL Appearance and Movements; NL JVP Respiratory: Symmetrical Chest Expansion and Respiratory Effort, Clear to Auscultation Cardiovascular: NL Sounds; No Murmurs; No JVD, RRR Abdominal: - - Distended but soft NABS +BS 4Quadrants Lymphatic: No Cervical Adenopathy Extremities: No Edema Skin: No Rash or Ulcers Neurological: Alert and Oriented x 3 Result Diagrams: 03/25/19 06:11 03/25/19 06:11 Additional Lab and Data: Lab Results Diagnostic Imagin03/22/19: CT Scan-Done at . Partial SBO noted with decompression past transition point, vasectomy clips seen and other stigmata of prior surgery. Assess/Plan/Problems-Billing Assessment: 58M PMH HAYLEY, GERD, CAD s/p PCI, HTN, who presented with partial SBO, being mgnd conservatively, with spontaneous resolution. - Patient Problems (1) Partial small bowel obstruction Current Visit: Yes Status: Acute Code(s): K56.600 - PARTIAL INTESTINAL OBSTRUCTION, UNSPECIFIED TO CAUSE SNOMED Code(s): 411037749 Comment: -4 small loose BM yesterday, if able to tolerate diet, may be able to d/c today , await AXR -Does have appenectomy hx -IVF @ 125cc/hr, NPO, trialed clears and soft ogvernight -Appreciate surgery input (2) Right knee pain Current Visit: Yes Status: Acute Code(s): M25.561 - PAIN IN RIGHT KNEE SNOMED Code(s): 23590249 Comment: -DDx MSK, gout, UA elevtaed, possibly first gout, no clear tappable effusion -Home with prednisone and conservative mgmt (3) HAYLEY (obstructive sleep apnea) Current Visit: Yes Status: Acute Code(s): G47.33 - OBSTRUCTIVE SLEEP APNEA ( ADULT) (PEDIATRIC) SNOMED Code(s): 12369546 Comment: -CPAP (4) HTN (hypertension) Current Visit: Yes Status: Acute Code(s): I10 - ESSENTIAL (PRIMARY) HYPERTENSION SNOMED Code(s): 70611246 Comment: -Resume oral meds (5) CAD (coronary artery disease) Current Visit: Yes Status: Acute Code(s): I25.10 - ATHSCL HEART DISEASE OF [place] CORONARY ARTERY W/O ANG PCTRS SNOMED Code(s): 82863358 Comment: -On statin, asa at baseline (6) Elevated LFTs Current Visit: Yes Status: Acute Code(s): R94.5 - ABNORMAL RESULTS OF LIVER FUNCTION STUDIES SNOMED Code(s): 802518280 Comment: -Mild, can be followed as outpt, probably LOMAX (7) DVT prophylaxis Current Visit: Yes Status: Acute Code(s): Z29.9 - ENCOUNTER FOR PROPHYLACTIC MEASURES, UNSPECIFIED SNOMED Code(s): 224452518 Comment: -SQH (8) Full code status Current Visit: Yes Status: Acute Code(s): Z78.9 - OTHER SPECIFIED HEALTH STATUS SNOMED Code(s): 967619416 Status and Disposition: Likely stable for d/c today
[2019-03-25 07:52] LABS: BUN/Creatinine Ratio 13.2 (8-20); Calcium 9.7 mg/dL (8.6-10.3); EGFR African American 102.8 (>60); Uric Acid 8.8 mg/dL (4.4-7.6)
[2019-03-25] MEDS: Heparin VIAL(*) 5000 UNITS/ML VIAL (FIVE THOUSAND) SUBCUT SCH (08:15)
[2019-03-25] MEDS: Ketorolac INJ* 30 MG/ML 1 ML VIAL IV PUSH PRN (08:23)
[2019-03-25] MEDS ORDERED: Diltiazem CD CAP* 180 MG PO SCH (09:00)
[2019-03-25] MEDS ORDERED: Spironolactone TAB* 25 MG PO SCH (09:00)
[2019-03-25] MEDS ORDERED: Aspirin 81 mg CHEW TAB* 81 MG TAB.CHEW PO SCH (09:00)
[2019-03-25] MEDS ORDERED: Atorvastatin* 40 MG TAB PO SCH (09:00)
[2019-03-25] MEDS ORDERED: Pantoprazole TAB * 40 MG TAB PO SCH (09:00)
[2019-03-25 12:05] VITALS: BP 120/63
--- NOTE | 2019-03-25 12:10 | PN ---
Progress Note - Progress Note Date of Service: 03/25/19 SOAP: Subjective:NAD reports multiple BM's since yesterday [] Objective: Vital Signs Temp 98.1 F 03/25/19 11:15 Pulse 56 03/25/19 11:15 Resp 20 03/25/19 11:15 BP 120/63 03/25/19 11:15 Pulse Ox 96 03/25/19 11:15 Intake & Output 03/24/19 03/25/19 03/25/19 18:59 06:59 18:59 Intake Total 768 300 120 Balance 768 300 120 Intake: IV Fluids 658 300 NS (0.9%) 658 300 Oral 110 0 120 Other: # Bowel Movements 0 3 # Voids 2 5 PEX GEN NAD Chest CTA CVS RRR ABD obese, soft, ND/NT EXT calves soft non tender [] Assessment: 58 yo male with PSBO now with multiple BM's, improved Physical exam. [] Plan: AXR pending, would advance diet, if tolerates diet, D/C home. D/W pt and Dr Gallo. []
--- NOTE | 2019-03-25 12:36 | DS ---
CC: Dr. Tate Vuong DISCHARGE SUMMARY: DATE OF ADMISSION: 03/23/19 DATE OF DISCHARGE: 03/25/19 PRIMARY CARE PROVIDER: Dr. Tate Vuong. DISPOSITION AT THE TIME OF DISCHARGE: Stable to be discharged to home. PRIMARY DIAGNOSES: 1. Partial small bowel obstruction, which has resolved with conservative management. 2. Right knee pain, possible gout. SECONDARY DIAGNOSES: 1. Obstructive sleep apnea, on CPAP. 2. Gastroesophageal reflux disease. 3. Coronary artery disease, status post PCI. 4. Hypertension. MEDICATIONS AT THE TIME OF DISCHARGE: 1. Aspirin 81 mg p.o. daily. 2. Diltiazem 360 mg p.o. daily. 3. Pantoprazole 40 mg p.o. b.i.d. 4. Rosuvastatin 20 mg p.o. daily. 5. Spironolactone 12.5 mg p.o. daily. 6. Prednisone 20mg BID for an additional 5 days s/p discharge Medication changes during this hospitalization include addition of prednisone. HISTORY OF PRESENT ILLNESS AND HOSPITAL COURSE: This is a 58-year-old male with above past medical history, who presented to the emergency room on from urgent care after he reported that he had been experiencing abdominal pain progressive for 5 days. He said that his symptoms started with flu-like symptoms with vomiting, fevers and chills and that lasted for 1 to 2 days and since then he had had no bowel movements and he was not passing flatus. He presented to the urgent care. He says the abdominal pain and distention persisted even though he was trying to work through this and in urgent care he had a CT scan that showed a partial small bowel obstruction and thus they referred him to the emergency room. In the ED, his vital signs were stable. Surgery was consulted and felt that he may benefit from conservative medical management with IV fluids, bowel rest. The patient refused an NG tube. He does have history of an appendectomy, but no other recent abdominal surgeries. He was admitted to the hospital on the hospitalist service with Surgery consulting and his hospital course by problems is as follows: 1. Partial small bowel obstruction seen on CT scan done at urgent care on 03/23. He did have transition point. He did pass small amounts of flatus early in his hospitalization, which was encouraging. He ambulated and was placed on IV fluids, kept on n.p.o. diet for the first day and then advanced to clears. By hospital day 2, he had 3 small liquid bowel movements spontaneously and Surgery felt that he would not need surgical intervention. Abdominal x-ray done on 03/25/19 showed nonspecific bowel pattern, although the patient was clinically tolerating soft diet that was started on 03/24/19 p.m. Most likely, the patient could have had a gastrointestinal illness that caused an ileus that led to partial small bowel obstruction that resolved spontaneously. He had no white count or fevers, no hemodynamic instability and no electrolyte disturbances during this hospitalization. Luckily, it seemed to resolve on its own. 2. Right knee pain. The patient spontaneously started having right knee pain anterior without trauma during this hospitalization and he had mild swelling to anterior knee with associated warmth and no overlying skin changes or erythema. The primary team felt that this possibly could represent early gout. Uric acid was checked and it was elevated at 8.8. It was responsive to conservative measures with ice and Toradol. The patient continued to monitor at home. Given no history of trauma, utility of radiographs seemed low. 3. CAD. His home medications were continued. 4. Hypertension. His home medications were continued once his diet was resumed and they were held initially. 5. GERD. Pantoprazole was continued. 6. HAYLEY. The patient was adherent with CPAP during this hospitalization. 7. DVT prophylaxis: The patient was kept on heparin. QUALITY IMPROVEMENT COORDINATOR (RN) DURING THIS HOSPITALIZATION: Included Surgery who followed closely and monitored the patient for serial abdominal exams throughout the 2 days of hospitalization and felt that he was never at a critical point needing surgery and were present for his spontaneous resolution. LABS AND STUDIES DONE DURING THIS HOSPITALIZATION: Labs on the day of discharge : White blood cell count 9.8, hemoglobin 13.3, hematocrit 38, platelets 287. BMP showed sodium 136, potassium 3.9, chloride 104, carbon dioxide 23, anion gap 9, BUN 12, creatinine 0.91, and glucose 123. Lactic acid was 0.7 on admission. AST and ALT were 46 and 65 with mildly elevated alk phos at 160. CT scan of the abdomen was done on 03/22/19 in the evening, which showed proximal small bowel exhibiting air-fluid levels and dilated up to 4 cm in thickness, questionable transition point in the mid level of abdomen, gas and stool seen throughout the colon. The liver parenchyma was homogeneous in attenuation without focal suspicious mass. Gallbladder was normal. No biliary duct dilatation was seen. Spleen was normal. Pancreas was normal. Adrenal glands were normal. Kidneys were normal. Most likely, all represented a partial small bowel obstruction with transition point. ITEMS TO FOLLOW UP ON STATUS POST DISCHARGE: 1. Elevated LFTs. He has mild LFT elevation. This most likely represents fatty liver. This can be followed up on as an outpatient. His CT scan showed no evidence of cholecystitis or cholelithiasis and he has no Lancaster's point on physical exam or right upper quadrant pain or tenderness to suggest his LFTs are concerning. 2. Partial small bowel obstruction. Likely, the patient had some kind of viral illness that caused an ileus that caused his complication. He is encouraged to stay hydrated, keep a soft diet and ambulate frequently. 3. Right knee pain, anterior. Unclear acute onset of nontraumatic right knee pain occurred in the setting of his ileus, although his uric acid level elevated at 8.8. It is possibly gout. The patient denies NSAID therapy and was offered prednisone as an outpatient. He did well with Toradol and ice. Because of its acute onset in nature with no trauma, utility of a knee x-ray is very low. He had no effusion to tap. TIME SPENT: Forty-five minutes was spent on the planning of this discharge with over half of that was spent directly at the bedside of the patient providing direct patient care. This discharge summary represents a distillation of total of 3-day hospitalization and if there are any questions about the care of this patient during this hospitalization, please do not hesitate to reach out and contact me directly, my cellphone is [phone]. Plan of care was discussed with the patient and his family and they have no further questions. He will follow up with Dr. Vuong in 1 to 2 weeks and knows to return to the emergency room if any further complications. [id number]/[facility] #: [id number] MARIA D
== END 2019-03-25 12:55 | disposition home or self-care (01) | DRG 247 ==
LOC: ED 18:07 → MED 23:49
PROVIDERS: ADMIT Student in an Organized Health Care Education/Training Program; ATTEND Internal Medicine
DX: K56.600 Partial intestinal obstruction, unspecified as to cause (principal); E87.1 Hypo-osmolality and hyponatremia; E78.00 Pure hypercholesterolemia, unspecified; I10 Essential (primary) hypertension; G47.33 Obstructive sleep apnea (adult) (pediatric); E78.5 Hyperlipidemia, unspecified; K21.9 Gastro-esophageal reflux disease without esophagitis; I25.10 Atherosclerotic heart disease of native coronary artery without angina pectoris; F41.0 Panic disorder [episodic paroxysmal anxiety]; K76.0 Fatty (change of) liver, not elsewhere classified; D64.89 Other specified anemias; M10.9 Gout, unspecified; Z88.1 Allergy status to other antibiotic agents; I25.2 Old myocardial infarction; Z95.5 Presence of coronary angioplasty implant and graft; Z87.891 Personal history of nicotine dependence; Z79.82 Long term (current) use of aspirin; Z79.899 Other long term (current) drug therapy
CPT/HCPCS: 36415; 74018; 80048; 80053; 83605; 83690; 83735; 84550; 85025; 86140; 96374; 96375; 99285; A9270-GY; J1644; J1885; J2270; J2405